=== PATIENT | male | born 1950 | race Caucasian/White ===

== ENCOUNTER 2022-01-25 17:00 | Emergency (ER) | payer MEDICARE, OTHER, SELFPAY ==
--- NOTE | ~2022-01-25 | CT_ITS ---
EXAMINATION: CT HEAD WITHOUT CONTRAST CLINICAL INFORMATION: Arm tingling COMPARISON: 12/21/2019 TECHNIQUE: Contiguous axial imaging was performed from the skull base to vertex without intravenous administration of contrast. This CT examination was performed using dose optimization techniques as appropriate, variously including the following: *Automated exposure control *Adjustment of mA and/or kV according to patient size (this includes techniques or standardized protocols for targeted exams where dose is matched to indication/reason for exam; i.e. extremities or head) *Use of iterative reconstruction technique DLP: 839 mGy-cm FINDINGS: There is no evidence of acute intracranial hemorrhage or territorial infarction. No abnormal mass effect or midline shift is seen. [place] to white matter differentiation is well preserved. No extra-axial fluid collections are identified. The ventricles are normal in size. There is no abnormal attenuation within the brain parenchyma. The osseous structures and soft tissues are normal. The mastoid air cells and visualized portions of the paranasal sinuses are well aerated. CT/CT head/brain wo con IMPRESSION: No acute intracranial pathology.
--- NOTE | 2022-01-25 17:15 | ED.WEAKNESS ---
HPI - Weakness General Chief complaint: Neuro Symptoms/Deficit Stated complaint: LEFT ARM NUMBNESS Time Seen by Provider: 01/25/22 17:55 Source: patient and EMS Mode of arrival: EMS Limitations: no limitations History of Present Illness HPI Narrative: 72-year-old male presents via EMS with left arm numbness and tingling that started approximately 1 hour prior to arrival. States that he has been out in the sun, walking the dog, and did not have much to drink today. He did not report any alcohol or drug use, states that he has a difficult time with prolonged sun exposure and has prior history of heat stroke. Feels this is similar. He does have full range of motion, and did not report any neurological deficits. He denies chest pain or pressure, palpitations, shortness of breath, syncope, fevers, chills, nausea, vomiting, diarrhea, and loss of consciousness MD Complaint: generalized weakness, numbness and tingling Onset (ago): hour(s) (Within 1 hour of arrival) Duration: improved Location: LUE Migration: none Severity: mild Severity scale (1-10): 2 Quality: tingling and numbness Relieving factors: rest Exacerbating factors: other (Heat) Context: other (Heat exposure) Associated symptoms: denies other symptoms Related Data Home Medications Medication Instructions Recorded Confirmed venlafaxine 37.5 mg 3 cap PO DAILY 01/25/22 01/25/22 capsule,extended release 24 hr Previous Rx's Medication Instructions Recorded lisinopril 5 mg tablet 5 mg PO DAILY #30 tabs 09/02/21 Allergies Allergy/AdvReac Type Severity Reaction Status Date / Time No Known Allergies Allergy Unverified 03/10/20 15:10 [No Known Allergies*] Review of Systems Review of Systems: Constitutional: No Fever, No Chills ENT/Mouth: No Ear Pain, No Hoarseness, No sore throat Eyes: No Eye Pain, No Swelling, No Redness, No Foreign Body Cardiovascular: No Chest Pain, No SOB Respiratory: No Cough, No Dyspnea Gastrointestinal: No Nausea, No Vomiting, No Diarrhea, No abdominal Pain Genitourinary: No Dysuria, No Hematuria Musculoskeletal: No joint pain, No Myalgias, No Joint Swelling Skin: No Skin lacerations, No rash Neuro: No Weakness, positive left arm tingling Numbness, No Paresthesias, No Loss of Consciousness, No Dizziness, No Headache Psych: No Anxiety/Panic, No Depression Heme/Lymph: no easy bruising, no Lymphadenopathy Endocrine: No Polyuria, No Polydipsia Yes all other systems are reviewed and are negative [facility] Past Medical History Attestation statement: The following information was validated with the patient. Source: old records reviewed Social History Social History Alcohol intake: never Advance Directives: No Advance Directives Information Provided: No Physical Exam Vital Signs: Vital Signs: Last Vital Signs Pulse 50 01/25/22 19:21 Resp 16 01/25/22 19:21 BP 187/81 H 01/25/22 19:21 Pulse Ox 100 01/25/22 19:21 O2 Del Method 01/25/22 19:21 BMI result Body Mass Index 28.0 Appearance: Alert. Oriented X3. No acute distress. Head: Normal external exam. Normocephalic. Atraumatic. Eyes: PERRLA. EOMI. Conjunctiva and sclera normal. Eyelids normal. ENT: TM's Normal. Pharynx normal. Uvula midline. Moist mucous membranes. No trismus noted. No drooling noted. No muffled voice noted. Neck: Normal inspection. Neck supple. No adenopathy. No meningeal signs. CVS: Normal heart rate and rhythm. Heart sound normal. No murmurs noted. Pulses equal to all extremities. Respiratory: No respiratory distress. Painless inspiration. Breath sounds normal. No wheezes/rales/rhonchi noted. Chest nontender. No accessory muscle usage noted or decreased air movement noted. Abdomen: Soft and nontender. Bowel sounds normal in all 4 quadrants. No distention noted. No organomegaly noted. No visible injury noted. Back: No CVA tenderness. Full range of motion noted. Skin: Skin warm and dry. Normal skin color. Normal skin turgor. No rashes/lesions/lacerations noted. Extremities: No lower extremity edema. Extremities exhibit normal range of motion. Extremities nontender. Neuro: cranial nerves 2-12 intact, no focal neural deficits, strength 5/5 to all extremities, No motor deficit. No sensory deficit. NIH Stroke Scale Internal: Initial- Upon Arrival Time: 17:21 Level of Consciousness: Alert Level of Consciousness Questions: Answers both questions correctly Level of Consciousness Commands: Performs both tasks correctly Best Gaze: Normal Visual: No visual loss Facial Palsy: Normal Motor Arm (Right): No drift Motor Arm (Left): No drift Motor Leg (Right): No drift Motor Leg (Left): No drift Limb Ataxia: Absent Sensory: Normal Best Language: No aphasia Dysarthia: Normal Extinction and Inattention: No abnormality Score: 0 Course Course Course Narrative: 72-year-old male presents via EMS for left arm numbness and tingling and prolonged heat exposure. Patient is neurovascularly intact, NIH stroke scale is [address] upon arrival[address] Will order CT scan of head however is not a stroke alert, I did discuss this case with Dr. Onofre who agrees with this plan, and workup for ACS. 18:20 troponin is 17.0 will repeat at the 3 hour corwin, H&H is unremarkable 13.9/39.3, and chemistries with exception to troponin are unremarkable. Urinalysis is negative. EKG is bradycardia with LVH, no change since July of 2018, no ST elevations or depressions. 20:42 2nd troponin 18. Negative delta. Low likelihood of ACS. CT scan is negative for acute findings. Low likelihood of CVA. Plan care to discharge home and patient to follow-up with primary care physician. Patient's symptoms have completely resolved. Has full range of motion, ambulatory with even steady gait. Plan care to discharge home. Patient verbalized understanding of and agrees to plan of care discharge home. Verbalized understanding of signs and symptoms indicating need for emergent intervention. MDM - Weakness MDM Narrative Medical decision making narrative: ACS, CVA Differential Diagnosis Differential diagnosis: Likely anemia, hypoglycemia and dehydration Medical Records Attestation: I reviewed the patient's medical records. Lab Data Attestation: I reviewed the patient's lab results. Result diagrams: 01/25/22 17:27 01/25/22 17:27 Labs: Lab Results 01/25/22 01/25/22 01/25/22 Range/Units 17:27 17:27 17:27 WBC 6.2 (4.8-10.8) X10*3/uL RBC 4.23 L (4.60-5.80) X10*6/uL Hgb 13.9 L (14.0-18.0) g/dl Hct 39.3 L (42.0-52.0) % MCV 92.9 (80.0-98.0) fL MCH 32.9 (27.0-33.0) pg MCHC 35.4 (31.0-36.0) g/dl RDW 12.6 (11.0-16.0) % Plt Count 193 (160-400) X10*3/uL MPV 9.7 (9.4-12.4) fL Immature Gran % (Auto) 0.3 (0.0-0.4) % Neut % (Auto) 69.9 (45-73) % Lymph % (Auto) 17.2 L (20-40) % [place] % (Auto) 7.3 (2-11) % Eos % (Auto) 4.2 H (0-4) % Baso % (Auto) 1.1 (0-2) % Lymph # (Auto) 1.1 L (1.2-4.9) X10*3/uL [place] # (Auto) 0.5 (0.1-1.2) X10*3/uL Eos # (Auto) 0.3 (0.0-0.4) X10*3/uL Baso # (Auto) 0.1 (0.0-0.2) X10*3/uL Abs Immat Gran (auto) 0.02 (0.00-0.03) X10*3/uL Absolute Neuts (auto) 4.3 (2.0-8.3) x10*3/uL Absolute Nucleated RBC 0.000 (0.0-0.012) X10*3/uL Nucleated RBC % (auto) 0.0 (0.0-0.2) /100WBC Sodium 138 (135-145) mmol/L Potassium 3.9 (3.3-5.1) mmol/L Chloride 107 (96-108) mmol/L Carbon Dioxide 22 (22-29) mmol/L Anion Gap 13 (12-20) BUN 14 (9-16) mg/dL Creatinine 0.74 (0.5-1.4) mg/dL Estim Creat Clear Calc 101.0 Estimated GFR > 60 POC Glucose (60-115) mg/dL Random Glucose 99 (60-115) mg/dL Calcium 8.7 (8.4-10.2) mg/dL Magnesium 1.9 (1.6-2.6) mg/dL Total Bilirubin 0.4 (0.0-1.0) mg/dL Direct Bilirubin < 0.2 (0.0-0.5) mg/dL AST 14 (5-37) U/L ALT 16 (0-40) U/L Alkaline Phosphatase 109 (39-117) U/L Troponin I High Sens 17.0 (<3.5-35.0) ng/L Total Protein 5.6 L (6.5-8.0) g/dL Albumin 3.8 (3.5-5.0) g/dL Lipase 9 (8-78) U/L Urine Color Urine Appearance Urine pH (5.0-8.0) Ur Specific [place] (1.005-1.025) Urine Protein (NEG-TRACE) MG/DL Urine Glucose (UA) (NEG) MG/DL Urine Ketones (NEG) MG/DL Urine Blood (NEG) Urine Nitrite (NEG) Ur Leukocyte Esterase (NEG) 01/25/22 01/25/22 01/25/22 Range/Units 17:30 17:49 19:53 WBC (4.8-10.8) X10*3/uL RBC (4.60-5.80) X10*6/uL Hgb (14.0-18.0) g/dl Hct (42.0-52.0) % MCV (80.0-98.0) fL MCH (27.0-33.0) pg MCHC (31.0-36.0) g/dl RDW (11.0-16.0) % Plt Count (160-400) X10*3/uL MPV (9.4-12.4) fL Immature Gran % (Auto) (0.0-0.4) % Neut % (Auto) (45-73) % Lymph % (Auto) (20-40) % [place] % (Auto) (2-11) % Eos % (Auto) (0-4) % Baso % (Auto) (0-2) % Lymph # (Auto) (1.2-4.9) X10*3/uL [place] # (Auto) (0.1-1.2) X10*3/uL Eos # (Auto) (0.0-0.4) X10*3/uL Baso # (Auto) (0.0-0.2) X10*3/uL Abs Immat Gran (auto) (0.00-0.03) X10*3/uL Absolute Neuts (auto) (2.0-8.3) x10*3/uL Absolute Nucleated RBC (0.0-0.012) X10*3/uL Nucleated RBC % (auto) (0.0-0.2) /100WBC Sodium (135-145) mmol/L Potassium (3.3-5.1) mmol/L Chloride (96-108) mmol/L Carbon Dioxide (22-29) mmol/L Anion Gap (12-20) BUN (9-16) mg/dL Creatinine (0.5-1.4) mg/dL Estim Creat Clear Calc Estimated GFR POC Glucose 101 (60-115) mg/dL Random Glucose (60-115) mg/dL Calcium (8.4-10.2) mg/dL Magnesium (1.6-2.6) mg/dL Total Bilirubin (0.0-1.0) mg/dL Direct Bilirubin (0.0-0.5) mg/dL AST (5-37) U/L ALT (0-40) U/L Alkaline Phosphatase (39-117) U/L Troponin I High Sens 18.4 (<3.5-35.0) ng/L Total Protein (6.5-8.0) g/dL Albumin (3.5-5.0) g/dL Lipase (8-78) U/L Urine Color YELLOW Urine Appearance CLEAR Urine pH 6.0 (5.0-8.0) Ur Specific [place] 1.020 (1.005-1.025) Urine Protein NEG (NEG-TRACE) MG/DL Urine Glucose (UA) NEG (NEG) MG/DL Urine Ketones NEG (NEG) MG/DL Urine Blood NEG (NEG) Urine Nitrite NEG (NEG) Ur Leukocyte Esterase NEG (NEG) Imaging Data CT scan - head: Attestation: I personally reviewed and interpreted this imaging study as follows: Radiologist's impression: EXAMINATION: CT HEAD WITHOUT CONTRAST CLINICAL INFORMATION: Arm tingling? COMPARISON: 12/21/2019 TECHNIQUE: Contiguous axial imaging was performed from the skull base to vertex without intravenous administration of contrast. This CT examination was performed using dose optimization techniques as appropriate, variously including the following: *Automated exposure control *Adjustment of mA and/or kV according to patient size (this includes techniques or standardized protocols for targeted exams where dose is matched to indication/reason for exam; i.e. extremities or head) *Use of iterative reconstruction technique DLP: 839 mGy-cm FINDINGS: There is no evidence of acute intracranial hemorrhage or territorial infarction. No abnormal mass effect or midline shift is seen. [place] to white matter differentiation is well preserved. No extra-axial fluid collections are identified. The ventricles are normal in size. There is no abnormal attenuation within the brain parenchyma. The osseous structures and soft tissues are normal. The mastoid air cells and visualized portions of the paranasal sinuses are well aerated. ? CT/CT head/brain wo con IMPRESSION: No acute intracranial pathology. ECG Data Attestation: I personally reviewed and interpreted this ECG as follows: ECG interpretation date: 01/25/22 ECG interpretation time: 17:46 Prior ECG tracings: available for review Interpretation: Vent. rate 51 BPM LA interval 168 ms QRS duration 102 ms QT/QTc 398/366 ms P-R-T axes 46 -25 17 Sinus bradycardia Minimal voltage criteria for LVH, may be normal variant ( Kristian product ) Inferior infarct (cited on or before 16-AUG-2018) Abnormal ECG When compared with ECG of 16-AUG-2018 13:28, No significant change was found Scores Heart Score History: -0- slightly suspicious ECG: -0- normal Age: -2- > or = 65 Risk factory: -1- 1 or 2 risk factors Troponin: -0- < or = normal limit Score: 3 Risk: 1.7% Discharge Plan Discharge Clinical Impression: Arm numbness left Patient Disposition: Home, Self-Care Instructions: Paresthesia (ED) Additional Instructions: You were evaluated for left arm numbness. CT scan of the head is negative for stroke and bleeding. EKG is normal sinus rhythm. Your 1st troponin was 17, your 2nd troponin 18. These are considered negative troponins. Please follow-up with primary care physician. Return to the emergency department for any new, concerning, or worsening symptoms. Prescriptions: No Action lisinopril 5 mg tablet 5 mg PO DAILY Qty: 30 3RF venlafaxine 37.5 mg capsule,extended release 24hr 3 cap PO DAILY Referrals: Jean Marie Bardales, [facility] [Primary Care Provider] - 1 week (Resolved paresthesia to the left arm) Interventions: ED Discharge Assessment Last Done: 01/25/22 20:55 Discharge Date/Time: 01/25/22 20:56
--- NOTE | 2022-01-25 17:16 | ECG_ITS ---
Test Reason : LEFT ARM TINGLING Blood Pressure : / mmHG Vent. Rate : 051 BPM Atrial Rate : 051 BPM P-R Int : 168 ms QRS Dur : 102 ms QT Int : 398 ms P-R-T Axes : 046 -25 017 degrees QTc Int : 366 ms Sinus bradycardia Minimal voltage criteria for LVH, may be normal variant ( Sproul product ) Inferior infarct (cited on or before 16-AUG-2018) Abnormal ECG When compared with ECG of 16-AUG-2018 13:28, No significant change was found Referred By: Pauline Barrera Electronically Signed By:KAYLIN LONDONO MD
[2022-01-25 17:37] LABS: Basophils Absolute Auto 0.1 X10*3/uL (0.0-0.2); Basophils Percent Auto 1.1 % (0-2); Eosinophils Absolute Auto 0.3 X10*3/uL (0.0-0.4); Eosinophils Percent Auto 4.2 % (0-4); Hematocrit 39.3 % (42.0-52.0); Hemoglobin 13.9 g/dl (14.0-18.0); Imm Gran Abs Auto 0.02 X10*3/uL (0.00-0.03); Imm Gran Pct Auto 0.3 % (0.0-0.4); Lymphocytes Absolute Auto 1.1 X10*3/uL (1.2-4.9); Lymphocytes Percent Auto 17.2 % (20-40); MANUAL DIFF FLAG NO; Mean Corpuscular HGB Conc 35.4 g/dl (31.0-36.0); Mean Corpuscular Hemoglobin 32.9 pg (27.0-33.0); Mean Corpuscular Volume 92.9 fL (80.0-98.0); Mean Platelet Volume 9.7 fL (9.4-12.4); Monocytes Absolute Auto 0.5 X10*3/uL (0.1-1.2); Monocytes Percent Auto 7.3 % (2-11); Neutrophils Absolute Auto 4.3 x10*3/uL (2.0-8.3); Neutrophils Percent Auto 69.9 % (45-73); Platelet Count 193 X10*3/uL (160-400); Red Blood Count 4.23 X10*6/uL (4.60-5.80); Red Cell Distribution Width 12.6 % (11.0-16.0); White Blood Count 6.2 X10*3/uL (4.8-10.8)
[2022-01-25 17:37] LABS: Glucose, Whole Blood 101 mg/dL (60-115)
[2022-01-25 17:53] VITALS: BP 169/80; PULSE 51; RESP 18; O2SAT 96; BMI 28.0
[2022-01-25 18:05] LABS: Appearance Urine CLEAR; Color Urine YELLOW; Glucose Urine UA NEG (NEG); Leukocyte Esterase Urine NEG (NEG); Nitrite Urine NEG (NEG); Urine Blood NEG (NEG); Urine Ketones NEG (NEG); Urine Protein NEG (NEG-TRACE)
[2022-01-25 18:06] LABS: Alanine Aminotransferase 16 U/L (0-40); Albumin Level 3.8 g/dL (3.5-5.0); Alkaline Phosphatase 109 U/L (39-117); Anion Gap 13 (12-20); Aspartate Amino Transferase 14 U/L (5-37); Bilirubin Direct < 0.2 mg/dL (0.0-0.5); Bilirubin Total 0.4 mg/dL (0.0-1.0); Blood Urea Nitrogen 14 mg/dL (9-16); Calcium 8.7 mg/dL (8.4-10.2); Carbon Dioxide 22 mmol/L (22-29); Chloride 107 mmol/L (96-108); Estimated Glomerular Filt Rate > 60; Glucose Random 99 mg/dL (60-115); Lipase 9 U/L (8-78); Magnesium 1.9 mg/dL (1.6-2.6); Potassium 3.9 mmol/L (3.3-5.1); Sodium 138 mmol/L (135-145); Total Protein 5.6 g/dL (6.5-8.0)
[2022-01-25] MEDS: 0.9 % Sodium Chloride 1,000 ML 999 ML IVCONT (18:07)
[2022-01-25 19:21] VITALS: BP 187/81; PULSE 50; RESP 16; O2SAT 100
--- NOTE | 2022-01-25 19:23 | PC.NURSE ---
pt c/o numbness to L arm while shaving in a hot bathroom, reports being in heat and not drinking enough lately. sx resolved at this time. stroke scale - no facial asymmetry, [employer] workers supervisor strength strong and equal. pt ambulated to BR to void with no complaints.
[2022-01-25 20:22] LABS: Troponin-I High Sensitivity 18.4 ng/L (<3.5-35.0)
== END 2022-01-25 20:56 | disposition home or self-care (01) ==
PROVIDERS: Nurse Practitioner Family; Emergency Provider Student in an Organized Health Care Education/Training Program; PCP Nurse Practitioner Family
DX: R20.0 Anesthesia of skin (principal); R53.1 Weakness; I10 Essential (primary) hypertension
CPT/HCPCS: 36415; 70450; 80048; 80076; 81003; 82947; 83690; 83735; 84484; 85025; 93005; 96360; 96361; 99284; 99285

== ENCOUNTER 2022-06-26 06:45 | Outpatient (REF) | payer MEDICARE, OTHER, SELFPAY ==
[2022-06-26 11:19] LABS: MANUAL DIFF FLAG NO
[2022-06-26 11:31] LABS: Appearance Urine Clear; Color Urine Yellow; Glucose Urine UA Negative (Negative); Leukocyte Esterase Urine Negative (Negative); Nitrite Urine Negative (Negative); PH 5.5 (5.0-9.0); Specific Gravity - Urine >= 1.030 (1.005-1.025); Urine Blood Negative (Negative); Urine Ketones Negative (Negative); Urine Protein Trace mg/dL (Neg-Trace)
[2022-06-26 11:38] LABS: Basophils Absolute Auto 0.1 X10*3/uL (0.0-0.2); Basophils Percent Auto 1.4 % (0-2); Eosinophils Absolute Auto 0.2 X10*3/uL (0.0-0.4); Eosinophils Percent Auto 3.7 % (0-4); Hematocrit 43.1 % (42.0-52.0); Hemoglobin 14.6 g/dl (14.0-18.0); Imm Gran Abs Auto 0.01 X10*3/uL (0.00-0.03); Imm Gran Pct Auto 0.2 % (0.0-0.4); Lymphocytes Absolute Auto 0.9 X10*3/uL (1.2-4.9); Lymphocytes Percent Auto 16.1 % (20-40); Mean Corpuscular HGB Conc 33.9 g/dl (31.0-36.0); Mean Corpuscular Hemoglobin 33.9 pg (27.0-33.0); Mean Platelet Volume 9.6 fL (9.4-12.4); Monocytes Absolute Auto 0.3 X10*3/uL (0.1-1.2); Monocytes Percent Auto 5.6 % (2-11); Neutrophils Absolute Auto 4.2 x10*3/uL (2.0-8.3); Platelet Count 283 X10*3/uL (160-400); Red Blood Count 4.31 X10*6/uL (4.60-5.80); Red Cell Distribution Width 12.6 % (11.0-16.0); White Blood Count 5.7 X10*3/uL (4.8-10.8)
[2022-06-26 12:16] LABS: Alanine Aminotransferase 13 U/L (0-40); Albumin Level 4.1 g/dL (3.5-5.0); Alkaline Phosphatase 116 U/L (39-117); Anion Gap 8 (12-20); Aspartate Amino Transferase 15 U/L (5-37); Bilirubin Total 0.6 mg/dL (0.0-1.0); Blood Urea Nitrogen 18 mg/dL (9-16); Calcium 9.6 mg/dL (8.4-10.2); Carbon Dioxide 29 mmol/L (22-29); Chloride 105 mmol/L (96-108); Cholesterol 193 mg/dL; Estimated Glomerular Filt Rate > 60; Glucose Fasting 91 mg/dL (60-99); HDL Cholesterol 44 mg/dL; LDL Cholesterol Calculated 119 mg/dl; Potassium 4.3 mmol/L (3.3-5.1); Sodium 138 mmol/L (135-145); Triglycerides 154 mg/dL
[2022-06-26 12:38] LABS: TSH reflex Free T4 0.81 uIU/mL (0.32-4.0)
== END 2022-06-26 06:46 | disposition home or self-care (01) ==
LOC: HO.HMGCLDS 06:45
PROVIDERS: PCP Nurse Practitioner Family; Visit Provider Nurse Practitioner Family
DX: I10 Essential (primary) hypertension (principal)
CPT/HCPCS: 36415; 80053; 80061; 81003; 84443; 85025

== ENCOUNTER 2023-12-28 11:35 | Emergency (ER) | payer MEDICARE, OTHER, SELFPAY ==
--- NOTE | ~2023-12-28 | XR_ITS ---
EXAMINATION: XR LUMBOSACRAL SPINE CLINICAL INFORMATION: Reason for Exam right lumbar pain COMPARISON: None TECHNIQUE: 3 views of the lumbar spine FINDINGS: 5 nonrib-bearing lumbar-type vertebral bodies. Questionable mild age-indeterminate wedge compression deformity of the L1 vertebral body with minimal height loss. Alignment is maintained. Moderate multilevel degenerative disc disease worse at L5-S1 with loss of disc space height and facet arthropathy. Atherosclerotic calcifications of the abdominal aorta. XR/XR lumbar spine 2-3V IMPRESSION: 1. Questionable mild age-indeterminate wedge compression deformity of the L1 vertebral body with minimal height loss. Alignment is maintained. 2. Moderate multilevel degenerative disc disease worse at L5-S1 with loss of disc space height and facet arthropathy.
[2023-12-28 11:47] VITALS: BP 203/85; PULSE 59; RESP 16; TEMP 36.7; O2SAT 97; BMI 26.6
--- NOTE | 2023-12-28 11:47 | ED_ITS ---
[facility] - General Adult General Chief complaint: Back Pain/Injury Stated complaint: back pain Time Seen by Provider: 12/28/23 11:58 Source: patient and RN notes reviewed Mode of arrival: ambulatory Limitations: no limitations History of Present Illness ED Provider: Erika Boyle PA-C [facility] narrative: This is a 73-year-old male, with a history of chronic back pain, who presents emergency department with complaints of acute on chronic back pain x3 weeks. Patient states that he has had back problems for decades, and is currently followed by [facility]. He states that he had a recent ablation 3 weeks ago and states that his pain has worsened significantly. Patient reports right low back pain, which radiates down into his mid lateral thigh. He followed up with [facility] last week who prescribed him gabapentin and diclofenac which he has been taking however states that this has not been providing him with any relief. He called [facility] and states that he was told he would get a MRI of his back however states that it has been a week and he has not heard back. He has not had any fevers or chills. No abdominal pain. No urinary or bowel incontinence or retention. No saddle anesthesia. No other complaints or concerns at this time. MD complaint: Acute on chronic back pain Onset (ago): week(s) Location: back Radiation: extremity Severity: mild Quality: burning Pain Consistency: constant Relieving factors: none Exacerbating factors: none Associated symptoms: denies other symptoms Treatments prior to arrival: none Related Data Home Medications ?Medication ?Instructions ?Recorded ?Confirmed venlafaxine 37.5 mg 3 cap PO DAILY 01/25/22 07/02/22 capsule,extended release 24 hr Previous Rx's ?Medication ?Instructions ?Recorded lisinopril 5 mg tablet 5 mg PO DAILY #90 tabs 11/12/23 ketorolac 10 mg tablet 10 mg PO Q6H PRN pain 3 days #12 12/28/23 tabs lidocaine 5 % topical patch 1 patch topical DAILY #30 ea 12/28/23 (Lidoderm) Allergies Allergy/AdvReac Type Severity Reaction Status Date / Time No Known Allergies Allergy Verified 12/28/23 11:49 [No Known Allergies*] Review of Systems Review of Systems: Yes all other systems are reviewed and are negative Constitutional: Constitutional: Reports as per [facility] Social History Social History Housing: House Alcohol intake: never Patient Tobacco Use Status: Never used Tobacco e-Cigarette/Vaping Use: Never Used Second Hand Smoke Exposure: No Advance Directives: No Advance Directives Information Provided: No Do you have a plan to hurt others: No Plan service: No Current occupational status: retired Cognitive needs: No Hearing needs: No Vision needs: No Physical Exam ED Vital Signs: Vital Signs - 24 hr 12/28/23 11:47 12/28/23 12:09 12/28/23 14:00 Temperature 98.0 F 97.9 F Pulse Rate 59 55 50 Respiratory Rate 16 12 Blood Pressure 203/85 H 164/74 H 219/91 H Pulse Oximetry 97 96 Oxygen Delivery Method Room Air Room Air 12/28/23 15:39 Temperature 98.0 F Pulse Rate 50 Respiratory Rate 16 Blood Pressure 190/90 H Pulse Oximetry 97 Oxygen Delivery Method Room Air BMI result Body Mass Index 26.6 Const General: cooperative, comfortable and no acute distress Orientation/consciousness: patient oriented x3 Limitations: no limitations HENMT Head: Yes normal to inspection, Yes normocephalic and Yes atraumatic Ears: hearing grossly normal bilaterally General nose exam: Normal external nose present Face and sinus: Yes normal facial exam Mouth: Normal oral and palatal mucosa present, oropharynx normal and moist mucous membranes Throat: Yes posterior oropharynx normal Eyes General: appearance normal, both eyes and all related structures Eyelids: Yes eyelids normal Conjunctivae: conjunctivae normal Sclerae: sclerae normal Pupils: Equal, round and reactive pupils present EOM: EOMs intact bilaterally Neck Neck: Yes normal visual inspection, Yes full ROM and Yes no lymphadenopathy Lymphatic: no lymphadenopathy noted Chest Chest palpation & inspection: normal inspection of the chest Resp Effort & Inspection: normal respiratory effort and able to speak in complete sentences Auscultation: clear to auscultation bilaterally, no crackles, no rales, no rhonchi and no wheezes Cardio Rate: regular rate Rhythm: regular rhythm Heart sounds: S1 normal heart sound present and S2 normal heart sound present GI Inspection: Yes normal to inspection Back/Spine/Pelvis Other: Tenderness palpation along the midline spine and right SI joint. Negative straight leg raise bilaterally. Strength 5/5 in lower extremities. Sensation intact. Skin General skin exam: no rashes or lesions noted Trauma: no lacerations or abrasions Wounds: no wounds Neuro General: patient oriented x3 and moves all extremities Cranial nerves: Yes Equal, round and reactive pupils present Extrem General: Yes normal to inspection Right upper extremity: normal to inspection Left upper extremity: normal to inspection Right lower extremity: normal to inspection Left lower extremity: normal to inspection Course Course Course Narrative: This is a Rapid Medical Examination (RME) performed by Vanessa Kaur PA-C in triage. Full HPI, ROS, assessment and treatment plan per primary provider in the Main ED. 73 yo male hx of etoh abuse, HTN here for eval of acute on chronic central low back pain x3 wks. Hx of cortisone injections at [facility]. recently seen there for RFA 3 wks ago, pain has worsened, now extending down legs. had f/u last week and was told an MRI would be ordered however this has not yet happened. taking motrin, mm relaxer, and gabapentin without relief. last dose 3 days ago. denies saddle anesthesia, bowel/bladder incontinence or retention. ttp of right lumbar paraspinal mm. strength intact. sensation intact. Plan: xrs ordered Reevaluation(s) Reevaluation #1: Patient's blood pressure was elevated, he states that he already took his lisinopril 5 mg however given level 200 over 90s, will administer 2nd dose of lisinopril. He has follow-up with his PCP on Saturday. Advised to follow-up regarding blood pressure. He understands and agrees with plan. He has no dizziness, focal deficits, chest pain or shortness for breath. At this time, patient blood pressure is 190/90, improved from previous. Patient given strict return precautions. Patient stable for discharge. Time: 18:50 Medications Administered Discontinued Medications Generic Name Dose Route Start Last Admin Trade Name Freq PRN Reason Stop Dose Admin Ketorolac Tromethamine 30 mg 12/28/23 12:43 12/28/23 12:56 Ketorolac Tromethamine 30 Mg/Ml Vial IM 12/28/23 12:44 30 mg ONCE ONE Administration Lisinopril 5 mg 12/28/23 14:50 12/28/23 14:55 Lisinopril 5 Mg Tablet PO 12/28/23 14:51 5 mg ONCE ONE Administration Protocol Medical Decision Making Medical Decision Making MDM Narrative: This is a 73-year-old male, with a history of hypertension and chronic back pain, who presents emergency department with complaints of acute on chronic back pain x3 weeks. He reports recent ablation in his back by [facility] 3 weeks ago and has only had worsening pain. He was prescribed gabapentin and diclofenac which he has been taking without any relief. On arrival, blood pressure elevated at 2 0 3/85, repeat during my assessment, 164/74. He does report he took his blood pressure medication. He has no chest pain or shortness for breath. No dizziness. He is tenderness palpation along the right SI joint. He has had no fevers or chills. Differential Diagnosis Differential Diagnoses: The differential diagnosis associated with the presentation includes Admission/Observation Consideration of admission/observation: Escalation of care including admission/ observation considered Lab Data [facility] Lab Attestation statement: I reviewed the patient's lab results. Radiology Impression Discussion of test interpretation with radiology: I have reviewed the radiologist's reading. External Record Review External record reviewed: Inpatient record, Office record, Outpatient record, Prior outpatient labs, Prior outpatient radiology, Primary care record and Outside ED record Discharge Plan Discharge Clinical Impression: Back pain Patient Disposition: Home, Self-Care Instructions: Back Pain (ED) Additional Instructions: You were seen in the emergency department due to worsening back pain. Your x-ray does show a questionable mild age indeterminate wedge compression fracture deformity of L1 vertebral body with minimal height loss. There is also multilevel degenerative disc disease, worse at L5-S1. You were given a medication called Toradol. This provided you with some relief. I am discharging him with a short prescription of this medication. Do not mix with any other NSAID medications, such as ibuprofen or naproxen. You may take Tylenol with this medication. Follow-up with the body painter. I am also giving your referral to the site specialist here. Call on Saturday to make an appointment. Lidocaine patches can also help with your symptoms. If any new or worsening symptoms occur including but not limited to numbness and tingling into your groin, loss of control of your bladder or bowels, difficulty with walking, please return for re-evaluation. Prescriptions: New ketorolac 10 mg tablet 10 mg PO Q6H PRN (Reason: pain) 3 Days Qty: 12 0RF lidocaine [Lidoderm] 5 % adhesive patch,medicated 1 patch topical DAILY Qty: 30 0RF Rx Instructions: leave on most painful area for up to 12 hrs No Action lisinopril 5 mg tablet 5 mg PO DAILY Qty: 90 1RF venlafaxine 37.5 mg capsule,extended release 24hr 3 cap PO DAILY Referrals: [facility] [Provider Group] William Reddy MD [Physician] - Interventions: ED Discharge Assessment Last Done: 12/28/23 15:39 Discharge Date/Time: 12/28/23 15:41 Print Language: Lao
[2023-12-28 12:09] VITALS: BP 164/74; PULSE 55; RESP 12; TEMP 36.6; O2SAT 96
[2023-12-28] MEDS: Ketorolac Tromethamine 30 MG/ML VIAL IM (12:56)
[2023-12-28 14:00] VITALS: BP 219/91; PULSE 50
[2023-12-28] MEDS: lisinopriL 5 MG TABLET PO (14:55)
--- NOTE | 2023-12-28 15:19 | PC.NURSE ---
upon dc vitals, patient's bp noted to be markedly high, provider made aware, additional dose of bp med given.
[2023-12-28 15:39] VITALS: BP 190/90; PULSE 50; RESP 16; TEMP 36.7; O2SAT 97
== END 2023-12-28 15:41 | disposition home or self-care (01) ==
PROVIDERS: Emergency Provider Emergency Medicine; PCP Nurse Practitioner Family
DX: M54.50 Low back pain, unspecified (principal); I10 Essential (primary) hypertension
CPT/HCPCS: 72100; 96372; 99284; J1885

== ENCOUNTER 2023-12-30 08:04 | Outpatient (AMB) | payer MEDICARE, OTHER, SELFPAY ==
[2023-12-30 08:10] VITALS: BP 162/90; PULSE 57; TEMP 36.6; O2SAT 96; BMI 26.9
--- NOTE | 2023-12-30 08:10 | AM.OFFWIN_ITS ---
Intake Vital Signs 12/30/23 08:10 Height 5 ft 9 in Weight 182 lb BMI 26.9 BP 162/90 H Blood Pressure Location Rt brachial Position Sitting Pulse 57 Pulse Source Pulse Oximeter Temp 97.9 F Temp Source Oral Pulse Oximetry (%) 96 Oxygen Delivery Method Room Air Intake Visit Reasons: EP High BP Intake Note: pt is here for high bp Patient Tobacco Use Status: Never used Tobacco Allergies No Known Allergies [No Known Allergies*] Allergy (Verified 12/30/23 08:34) Medication List - Last Reconciled 12/30/23 by Rashaun Burgos MD ketorolac 10 mg PO Q6H PRN 3 days lidocaine 5% (Lidoderm) 1 patch topical DAILY lisinopril 10 mg PO DAILY venlafaxine ER 3 caps PO DAILY Do you need a note to return to daycare/school/sports/work: No HPI EP High BP HPI Details [age] year old no presents to the office for a sick visit. Patient gives history of chronic low back pain. Recently he underwent ablation treatment in the lower back. The pain symptoms worsened and was seen in the emergency room over the weekend. It was noted that his blood pressure was markedly elevated patient was asked to follow-up with his primary care regarding the dosage of the blood pressure medications he is taking. Patient decided to use the walk-in for the same. Also wants a referral to pain management. [facility] Social History Housing: House Alcohol intake: never Patient Tobacco Use Status: Never used Tobacco e-Cigarette/Vaping Use: Never Used Second Hand Smoke Exposure: No service: No Current occupational status: retired Cognitive needs: No Hearing needs: No Vision needs: No Physical Exam Vital Signs: Last Vital Signs Temp 97.9 F 12/30/23 08:10 Pulse 57 12/30/23 08:10 BP 162/90 H 12/30/23 08:10 Pulse Ox 96 12/30/23 08:10 Oxygen Delivery Method Room Air 12/30/23 08:10 BMI result Body Mass Index 26.9 Const General: cooperative and healthy appearing Nutritional Appearance: well nourished Orientation/consciousness: patient oriented x3 Limitations: no limitations HEENT Head: Yes normal to inspection Eyes General: appearance normal, both eyes and all related structures Neck Neck: Yes normal visual inspection Chest Chest palpation & inspection: normal palpation of entire chest wall Resp Effort & Inspection: normal respiratory effort Neuro General: patient oriented x3 Assessment & Plan Assessment & Plan (1) HTN (hypertension): Code(s): I10 - Essential (primary) hypertension Qualifiers: Hypertension type: essential hypertension Qualified Code(s): I10 - Essential (primary) hypertension Plan: Lisinopril dosage has been increased to 10 mg once a day. His elevated blood pressure may also be also due to the pain says he is having. A referral for pain management has been made. A note for his primary care provider will be sent regarding the same. Orders: Referrals Pain Management Referral G89.29 - Other chronic pain, M54.50 - Low back pain, unspecified Medications: New lisinopril 10 mg PO DAILY 90 tabs 1RF Discontinued lisinopril Discontinued Reason: Doctor's Order 5 mg PO DAILY 90 tabs 1RF Coding Level of Care Code Est Pt Level 4 (59564) Diagnoses Essential hypertension I10 Hypertension type: essential hypertension
== END 2023-12-30 08:38 | disposition home or self-care (01) ==
PROVIDERS: PCP Nurse Practitioner Family; Visit Provider Internal Medicine
DX: I10 Essential (primary) hypertension (principal)
CPT/HCPCS: 99214

== ENCOUNTER 2024-01-02 13:29 | Outpatient (AMB) | payer MEDICARE, OTHER, SELFPAY ==
--- NOTE | 2024-01-02 13:30 | MHC.OFFVIS ---
Vital Signs 01/02/24 13:39 Height 5 ft 9 in Weight 181 lb 2 oz BMI 26.7 BP 150/94 H Blood Pressure Location Lt brachial Position Sitting Respiration 14 Pulse 54 Pulse Source Pulse Oximeter Pulse Oximetry (%) 97 Oxygen Delivery Method Room Air Intake Visit Reasons: LOW BACK PAIN Intake Note: Patient comes in for initial visit was referred by primary care. Reports pain 04/02. Allergies No Known Allergies [No Known Allergies*] Allergy (Verified 01/02/24 13:40) HPI Comments Details: Jean Marie is very pleasant 73 years old gentleman who presents in my office with complains on pain in the lower back on the right side with radiation into the right hip. He reports that he suffers from this pain for 20 years. On his [place] [facility] [place] is demonstrable L1 compression fracture. However patient denies recent trauma, fall, bumpy ride. He reports that walking hurts more than sitting staying or laying down. He reports that [facility] injected this pain many years ago and it resulted with 3 years of pain relief. Patient reports that it was steroid injection. Recently [facility] performed radiofrequency ablation of what it looks like lumbar medial branches on the right side. Unfortunately the radiofrequency ablation only aggravated the pain of the patient. He had multiple physical therapies for his pain and none of which were effective. His primary care physician sent him for the MRI of the lumbar spine. He reports that he can not sleep normally can not do activities of daily living can take care of himself can not function normally. Movements aggravate his pain in terms of tissue damage he reports his pain as dull, sore, hurting, aching, heavy sensation. He is taking meloxicam to help his pain 7.5 mg. He received no surgeries in the past he denies any past medical history he denies smoking drinking he denies drugs. [facility] Social History Housing: House Alcohol intake: never Patient Tobacco Use Status: Never used Tobacco e-Cigarette/Vaping Use: Never Used Second Hand Smoke Exposure: No service: No Current occupational status: retired Cognitive needs: No Hearing needs: No Vision needs: No Review of Systems Const Reports no additional complaints ENT Reports no additional complaints and Reports Normal hearing present Card Reports no additional complaints Resp Reports no additional complaints GI Reports no additional complaints Reports no additional complaints Musc Reports as per HPI Neuro Reports no additional complaints, Reports Normal hearing present, Denies Abnormal speech present, Denies confusion and Denies Sensory deficit (Neuro) Psych Reports no additional complaints and Denies confusion Physical Exam Vital Signs: Last Vital Signs Pulse 54 01/02/24 13:39 Resp 14 01/02/24 13:39 BP 150/94 H 01/02/24 13:39 Pulse Ox 97 01/02/24 13:39 Oxygen Delivery Method Room Air 01/02/24 13:39 BMI result Body Mass Index 26.7 Const General: no acute distress; No confusion Orientation/consciousness: patient oriented x3 and No confusion Eyes General: appearance normal, both eyes and all related structures Pupils: Equal, round and reactive pupils present EOM: EOMs intact bilaterally Neck Neck: Yes full ROM Chest Chest palpation & inspection: normal inspection of the chest Resp Effort & Inspection: normal respiratory effort, able to speak in complete sentences, normal respiratory pattern, no audible wheezes and no cough Cardio Jugular venous distension: no JVD GI Inspection: Yes normal to inspection Back/Spine/Pelvis Other: Able to stand on bilateral tiptoes in bilateral heels without difficulty. SLR is negative bilaterally. Lassegue test does not aggravate his pain. Flexing forward and flexing backwards do not aggravate his pain. Flexing sideways than not aggravate his pain. Valsalva maneuver does not aggravate his pain. Lumbar spine Loading test does not aggravate his pain. Raman test is negative bilaterally. Fourteen finger test is positive on the right but this is the only thing which could point out to sacroiliac joint involvement in his pain. Gaenslen test is negative bilaterally. Neuro General: patient oriented x3, gait normal and No confusion Cranial nerves: Yes CN's II-XII intact bilaterally, Yes Equal, round and reactive pupils present, Yes Normal hearing present and Yes Ability to bilaterally elevate shoulders present Speech: No Abnormal speech present Gait exam (Neuro): Normal gait present Motor exam (neuro): 5/5 motor strength present throughout Sensory Exam: No Sensory deficit (Neuro) Extrem General: No pedal edema Psych Speech and movement: Normal speech and movement present Affect: normal affect Attitude: cooperative Thought process: Normal thought process present Thought content: Normal thought content present Insight: Good insight present (Psych) Judgement: Good judgement present (Psych) Results Reviewed Results Reviewed: On the x-ray there is L1 compression fracture Khoi old Assessment & Plan Assessment & Plan (1) Lower back pain: Code(s): M54.50 - Low back pain, unspecified Category: Medical Plan This patient presents as a challenge in terms of diagnosis. All the diagnostic tests are negative. On x-ray there is old compression fracture however it is L1 and unlikely it is involved in the patient's pain syndrome. Fourteen finger test is positive on the right but the rest of the sacroiliac joint tests are negative. He is sent for the MRI of the lumbar spine, he reports pain aggravation with walking, sitting and laying down alleviate his pain. His primary care physician send him for the MRI and I would like to see the MRI of lumbar spine. He received RFA of the lumbar spine medial branches and it appears that RFA aggravated his pain only. Three years ago he received some sort of a steroid injection in the back which alleviated his pain for almost 3 years. I also will request [facility] to send me the injections he received with this organization. I will meet this patient in my office in 2 weeks and I will make my conclusion about this patient's examination and diagnosis. Coding Level of Care Code New Pt Level 3 (81667) Diagnoses Lower back pain M54.50
[2024-01-02 13:39] VITALS: BP 150/94; PULSE 54; RESP 14; O2SAT 97; BMI 26.7
== END 2024-01-02 13:59 | disposition home or self-care (01) ==
PROVIDERS: PCP Nurse Practitioner Family; Referring Provider Nurse Practitioner Family; Visit Provider Anesthesiology
DX: M54.50 Low back pain, unspecified (principal)
CPT/HCPCS: 99203

== ENCOUNTER → 2024-01-02 13:29 | Outpatient (BNVA) | payer MEDICARE, OTHER, SELFPAY | PROVIDERS: PCP Nurse Practitioner Family; Referring Provider Nurse Practitioner Family; Visit Provider Anesthesiology | DX: M54.50 Low back pain, unspecified (principal) | CPT/HCPCS: 99202 ==

== ENCOUNTER 2024-03-16 06:18 | Outpatient (REF) | payer MEDICARE, OTHER, SELFPAY ==
[2024-03-16 10:11] LABS: Appearance Urine Clear; Color Urine Yellow; Glucose Urine UA Negative (Negative); Leukocyte Esterase Urine Negative (Negative); Nitrite Urine Negative (Negative); Urine Blood Negative (Negative); Urine Ketones Negative (Negative); Urine Protein Trace mg/dL (Neg-Trace)
[2024-03-16 10:29] LABS: MANUAL DIFF FLAG NO
[2024-03-16 10:34] LABS: Basophils Absolute Auto 0.1 X10*3/uL (0.0-0.2); Basophils Percent Auto 1.7 % (0-2); Eosinophils Absolute Auto 0.2 X10*3/uL (0.0-0.4); Eosinophils Percent Auto 3.7 % (0-4); Hematocrit 43.8 % (42.0-52.0); Hemoglobin 14.9 g/dl (14.0-18.0); Imm Gran Abs Auto 0.02 X10*3/uL (0.00-0.03); Imm Gran Pct Auto 0.4 % (0.0-0.4); Lymphocytes Absolute Auto 0.9 X10*3/uL (1.2-4.9); Lymphocytes Percent Auto 16.4 % (20-40); Mean Corpuscular Hemoglobin 34.8 pg (27.0-33.0); Mean Corpuscular Volume 102.3 fL (80.0-98.0); Mean Platelet Volume 9.8 fL (9.4-12.4); Monocytes Absolute Auto 0.3 X10*3/uL (0.1-1.2); Monocytes Percent Auto 6.3 % (2-11); Neutrophils Absolute Auto 3.8 x10*3/uL (2.0-8.3); Neutrophils Percent Auto 71.5 % (45-73); Platelet Count 259 X10*3/uL (160-400); Red Blood Count 4.28 X10*6/uL (4.60-5.80); Red Cell Distribution Width 13.1 % (11.0-16.0); White Blood Count 5.4 X10*3/uL (4.8-10.8)
[2024-03-16 11:07] LABS: Alanine Aminotransferase 18 U/L (0-40); Albumin Level 4.3 g/dL (3.5-5.0); Alkaline Phosphatase 134 U/L (39-117); Anion Gap 11 (12-20); Aspartate Amino Transferase 18 U/L (5-37); Bilirubin Total 0.4 mg/dL (0.0-1.0); Blood Urea Nitrogen 13 mg/dL (9-16); Calcium 9.8 mg/dL (8.4-10.2); Carbon Dioxide 28 mmol/L (22-29); Chloride 107 mmol/L (96-108); Cholesterol 166 mg/dL (<200); Estimated Glomerular Filt Rate > 60; Glucose Fasting 98 mg/dL (60-99); HDL Cholesterol 49 mg/dL (>40); LDL Cholesterol Calculated 100 mg/dL (<100); Potassium 4.7 mmol/L (3.3-5.1); Sodium 141 mmol/L (135-145); TSH reflex Free T4 1.17 uIU/mL (0.32-4.0); Total Protein 6.5 g/dL (6.5-8.0); Triglycerides 85 mg/dL (<150)
== END 2024-03-16 06:19 | disposition home or self-care (01) ==
LOC: HO.HMGCLDS 06:18
PROVIDERS: PCP Nurse Practitioner Family; Visit Provider Nurse Practitioner Family
DX: I10 Essential (primary) hypertension (principal)
CPT/HCPCS: 36415; 80053; 80061; 81003; 84443; 85025

== ENCOUNTER 2024-03-24 13:18 | Outpatient (AMB) | payer MEDICARE, OTHER, SELFPAY ==
--- NOTE | 2024-03-24 13:19 | A.OFFVIS_ITS ---
Intake Vital Signs 03/24/24 13:20 Height 5 ft 9 in Weight 182 lb BMI 26.9 BP 170/92 H Blood Pressure Location Lt brachial Position Sitting Pulse 60 Pulse Source Pulse Oximeter Pulse Oximetry (%) 97 Intake Visit Reasons: AWV Intake Note: pt is here for AWV Under Baster Required: No Accompanied by: Self / Same As Patient Allergies No Known Allergies [No Known Allergies*] Allergy (Verified 03/24/24 13:20) Medication List - Last Reconciled 03/24/24 by MELANY Mena-MARIANA lidocaine 5% (Lidoderm) 1 patch topical DAILY lisinopril 40 mg PO DAILY meloxicam 7.5 mg PO DAILY PRN tramadol 50 mg PO DAILY PRN 20 days venlafaxine ER 3 caps PO DAILY Do you need a note to return to daycare/school/sports/work: No HPI AWV HPI Details Pt is here for an AWV. Denies fever, chills, and dizziness. [place] of care in scan pile. PPP will be scanned in chart and copy will be given to pt. Due for colon screen, will order cologuard. Refuses PSA. HPI Comments History of Present Illness Details HTN: Blood pressure is managed with lisinopril 10mg. BP is elevated today. Will increase lisinopril to 40mg. Will have pt monitor his BP at home and send readings via portal. Denies chest pain, shortness of breath, headache, dizziness, and blurred vision. Pt's alk phos was elevated. Will order alk leah isoenzyme. Dyslipidemia: Will start low-dose atorvastatin. [facility], [facility] Social History Housing: House Alcohol intake: never Patient Tobacco Use Status: Never used Tobacco e-Cigarette/Vaping Use: Never Used Second Hand Smoke Exposure: No service: No Current occupational status: retired Cognitive needs: No Hearing needs: No Vision needs: No Questionnaire Medicare Wellness Checkup [age] What gender do you identify with?: male During the past 4 weeks, how much have you been bothered by emotional problems such as feeling anxious, depressed, irritable, sad or downhearted, and blue?: not at all During the past 4 weeks, has your physical & emotional health limited your social activities with family, friends, neighbors, or groups?: not at all During the past 4 weeks, how much bodily pain have you generally had?: no pain During the past 4 weeks, was someone available to help you if you needed & wanted help?: yes, as much as I wanted During the past 4 weeks, what was the hardest physical activity you could do for at least 2 minutes?: moderate Can you get to places out of walking distance without help? (For eg., can you travel alone on buses, taxis or drive your car?): Yes Can you go shopping for groceries or clothes without someone's help?: Yes Can you prepare your own meals?: Yes Can you do your housework without help?: Yes Because of any health problems, do you need the help of another person with your personal care needs such as eating, bathing, dressing or getting around the house?: No Can you handle your own money without help?: Yes During the past 4 weeks, how would you rate your health in general?: excellent During the past 4 weeks how have things been going for you?: very well; could hardly better Are you having difficulties driving your car?: no Do you always fasten your seat belt when you are in a car?: yes, usually During past 4 weeks, have you been bothered by the following: never: Falling or dizzy when standing up, Sexual problems?, Trouble eating well?, Teeth or denture problems?, Problems using the telephone? and Tiredness or fatigue? Have you fallen 2 or more times in the past year?: No Are you afraid of falling?: No Are you a smoker?: no During the past 4 weeks, how many drinks of wine, beer, or other alcoholic beverages did you have?: no alcohol at all Do you exercise for about 20 minutes 3 or more times a week?: yes, all the time Have you been given information to help with the following?: yes: Hazards in your house that might hurt you? and yes: Keeping track of your medications? How often do you have trouble taking medicines the way you have been told to take them?: I always take medicine as prescribed How confident are you that you can control & manage most of your health problems?: very confident What is your race?: White PHQ-9 Over the last 2 weeks, how often have you been bothered by any of the following problems? 1. Little interest or pleasure in doing things: not at all 2. Feeling down, depressed, or hopeless: not at all 3. Trouble falling or staying asleep, or sleeping too much: not at all 4. Feeling tired or having little energy: not at all 5. Poor appetite or overeating: not at all 6. Feeling bad about yourself - or that you are a failure or have let yourself or your family down: not at all 7. Trouble concentrating on things, such as reading the newspaper or watching television: not at all 8. Moving or speaking so slowly that other people could have noticed. Or the opposite - being so fidgety or restless that you have been moving around a lot more than usual: not at all 9. Thoughts that you would be better off or of hurting yourself in some way: not at all Total score: 0 Depression Screening Interpretation: Negative Depression Screening Done: Yes 21832 - PHQ-9 Billing: Yes Source: Developed by Drs. Simone Cheung, Phoenix Barclay and colleagues, with an educational tonya from [employer]. PARRISH-7 AMB Questionnaire PARRISH-7 Date PARRISH - 7 assessed: 03/24/24 Feeling nervous, anxious, or on edge: 0 = Not at all Not being able to stop or control worryin = Not at all Worrying too much about different things: 0 = Not at all Trouble relaxin = Not at all Being so restless that it is hard to sit still: 0 = Not at all Becoming easily annoyed or irritable: 0 = Not at all Feeling afraid as if something awful might happen: 0 = Not at all Total PARRISH-7 score (0-4 normal; 5-9 mild; 10-14 moderate; 15-21 severe): 0 Source: Developed by Drs. Simone Cheung, Phoenix Barclay and colleagues, with an educational tonya from [employer]. PRARISH-7 Assessment Billing PARRISH-7 Assessment Tool: PARRISH-7 Assessment 27619 Review of Systems Const Reports as per HPI Physical Exam Vital Signs: Last Vital Signs Pulse 60 03/24/24 13:20 BP 170/92 H 10/01/24 13:20 Pulse Ox 97 03/24/24 13:20 BMI result Body Mass Index 26.9 Const General: cooperative Orientation/consciousness: patient oriented x3 Resp Effort & Inspection: normal respiratory effort Auscultation: clear to auscultation bilaterally Cardio Rate: regular rate Rhythm: regular rhythm Heart sounds: S1 normal heart sound present, S2 normal heart sound present and Murmur heart sound present systolic Neuro Other: - romberg, can tandem walk, can walk and turn, can rise from sitting to standing, passed whisper test General: patient oriented x3 Psych Appearance: grossly normal Mental Status: mental status grossly normal Speech and movement: Normal speech and movement present Affect: normal affect Attitude: cooperative Thought process: Normal thought process present Thought content: Normal thought content present Insight: Good insight present (Psych) Judgement: Good judgement present (Psych) Office Procedures Cerumen Removal From which ear canal was the cerumen removed: bilateral Removal: irrigation Notes: patient tolerated procedure well, no complications and ear canal clear [id number] Irrigation/Lavage Assessment & Plan Assessment & Plan (1) Cerumen debris on tympanic membrane of both ears: Code(s): H61.23 - Impacted cerumen, bilateral Plan: clean (2) HTN (hypertension): Code(s): I10 - Essential (primary) hypertension Qualifiers: Hypertension type: essential hypertension Qualified Code(s): I10 - Essential (primary) hypertension Plan: increased lisinopril from 10mg to 40mg, will send values via portal (3) Encounter for annual wellness visit (AWV) in Medicare patient: Code(s): Z00.00 - Encounter for general adult medical examination without abnormal findings (4) Elevated alkaline phosphatase level: Code(s): R74.8 - Abnormal levels of other serum enzymes Plan: alk phos break down (5) Systolic murmur: Code(s): R01.1 - Cardiac murmur, unspecified Plan: echo Plan The patient agreed to the use of a biomedical engineering technician for this encounter. Scribed for JAZZ Salazar by Charmaine Dickerson biomedical engineering technician, on 03/24/2024 at 13:45 EST. Orders: Orders Alkaline Phosphatase Isoenzyme Today R74.8 - Abnormal levels of other serum enzymes CA echo transthoracic complete Today R01.1 - Cardiac murmur, unspecified Medications: New atorvastatin 10 mg PO BEDTIME 90 days 90 tabs 0RF Changed From lisinopril 10 mg PO DAILY 90 tabs 1RF To lisinopril 40 mg PO DAILY 90 tabs 1RF Refilled lisinopril 40 mg PO DAILY 90 tabs 1RF Quality Reporting (2019) Depression/Bipolar (159/160/161/177) PHQ-9: Total score: 0 Coding Level of Care Code Medicare First (G0438) Est Pt Level 3 (45580) Diagnoses Cerumen debris on tympanic membrane of both ears H61.23 Essential hypertension I10 Hypertension type: essential hypertension Encounter for annual wellness visit (AWV) in Medicare patient Z00.00 Elevated alkaline phosphatase level R74.8 Systolic murmur R01.1 CPT Codes Advance Care Planning - Time spent: 1-15 minutes, on File ([id number]) Office Procedure - CPT: 46197-Eur Irrigation/Lavage ([id number]) Additional Codes PARRISH-7 Assessment Billing - PARRISH-7 Assessment Tool: PARRISH-7 Assessment 54456 ([id number]) Advance Care Planning Forms completed: Health Care Proxy (form completed), MOLST (form filled out) and Living will (done, according to pt) Time spent: 1-15 minutes, on File Actual minutes spent: 15
[2024-03-24 13:20] VITALS: BP 170/92; PULSE 60; O2SAT 97; BMI 26.9
== END 2024-03-24 17:28 | disposition home or self-care (01) ==
PROVIDERS: PCP Nurse Practitioner Family; Visit Provider Nurse Practitioner Family
DX: Z00.00 Encounter for general adult medical examination without abnormal findings (principal); H61.23 Impacted cerumen, bilateral; I10 Essential (primary) hypertension; R74.8 Abnormal levels of other serum enzymes; R01.1 Cardiac murmur, unspecified

== ENCOUNTER → 2024-03-24 13:18 | Outpatient (BNVA) | payer MEDICARE, OTHER, SELFPAY | PROVIDERS: PCP Nurse Practitioner Family; Visit Provider Nurse Practitioner Family | DX: Z00.01 Encounter for general adult medical examination with abnormal findings (principal); H61.23 Impacted cerumen, bilateral; I10 Essential (primary) hypertension; R74.8 Abnormal levels of other serum enzymes; R00.1 Bradycardia, unspecified | CPT/HCPCS: 69209; 96127; 99212 ==

== ENCOUNTER 2024-04-30 08:01 | Outpatient (AMB) | payer MEDICARE, OTHER, SELFPAY ==
[2024-04-30 08:09] VITALS: BP 130/90; PULSE 47; TEMP 36.6; O2SAT 98; BMI 25.4
--- NOTE | 2024-04-30 08:09 | MHC.OFFWIV ---
Intake Vital Signs 04/30/24 08:09 Height 5 ft 9 in Weight 172 lb BMI 25.4 BP 130/90 H Blood Pressure Location Lt brachial Position Sitting Pulse 47 L Pulse Source Pulse Oximeter Temp 98 F Temp Source Oral Pulse Oximetry (%) 98 Oxygen Delivery Method Room Air Intake Visit Reasons: EP ? sinus infection Intake Note: Patient here for sinus congestion which has been present for about 4-5 days. Patient Tobacco Use Status: Never used Tobacco Allergies No Known Allergies [No Known Allergies*] Allergy (Verified 04/30/24 08:14) Do you need a note to return to daycare/school/sports/work: No HPI HPI Comments History of Present Illness Details Patient is a 74-year-old male complaining of 5 days of a dry cough, head congestion, sinus pain and pressure and teeth pain the last 5 days. He denies any ear pain, fevers, shortness of breath or wheezing. Tells me he is eating and drinking normally. He tells me he has not tried anything to make himself feel better. He did not test for COVID at home and he denies any sick contacts. [facility] Social History Housing: House Alcohol intake: never Patient Tobacco Use Status: Never used Tobacco e-Cigarette/Vaping Use: Never Used Second Hand Smoke Exposure: No service: No Current occupational status: retired Cognitive needs: No Hearing needs: No Vision needs: No Review of Systems Const All systems reviewed & are unremarkable except as noted in HPI and below Physical Exam Vital Signs: Last Vital Signs Temp 98 F 04/30/24 08:09 Pulse 47 L 04/30/24 08:09 BP 130/90 H 04/30/24 08:09 Pulse Ox 98 04/30/24 08:09 Oxygen Delivery Method Room Air 04/30/24 08:09 BMI result Body Mass Index 25.4 Const General: cooperative, healthy appearing, comfortable and no acute distress Orientation/consciousness: patient oriented x3 Limitations: no limitations HEENT Head: Yes normal to inspection Ears: hearing grossly normal bilaterally, external ears normal and TM's normal bilaterally General nose exam: Normal external nose present, Normal nares present and No nasal discharge present Face and sinus: Yes normal facial exam and Yes sinus tenderness (maxillary bilateral) Mouth: Normal oral and palatal mucosa present and moist mucous membranes Throat: Yes tonsils normal, Yes uvula midline and Yes posterior oropharynx abnormal (Erythema) Eyes General: appearance normal, both eyes and all related structures Neck Neck: Yes normal visual inspection Resp Effort & Inspection: normal respiratory effort, able to speak in complete sentences, Actively coughing, no respiratory distress, not tachypneic, no tripod positioning and no use of accessory muscles Auscultation: clear to auscultation bilaterally Cardio Rate: regular rate Rhythm: regular rhythm Heart sounds: normal S1 and S2 Skin General skin exam: no rashes or lesions noted Neuro General: patient oriented x3 Extrem General: Yes normal to inspection and Yes no clubbing, cyanosis or edema Assessment & Plan Assessment & Plan (1) URI (upper respiratory infection): Code(s): J06.9 - Acute upper respiratory infection, unspecified Qualifiers: URI type: unspecified URI Qualified Code(s): J06.9 - Acute upper respiratory infection, unspecified Plan: VSS, pt well appearing, physical exam relatively unremarkable. Explained that sinusitis is almost always viral, we will do a prednisone taper for the pain/pressure. Recommended he use a Neti pot and Flonase as well. Plan see above Orders: Orders SARS-CoV2/FLU/RSV Today J06.9 - Acute upper respiratory infection, unspecified Medications: New prednisone See taper instructions 10 mg PO DIRECTED 21 ea 0RF Coding Level of Care Code Est Pt Level 3 (85708) Diagnoses Upper respiratory tract infection, unspecified type J06.9 URI type: unspecified URI
== END 2024-04-30 08:49 | disposition home or self-care (01) ==
PROVIDERS: PCP Nurse Practitioner Family; Visit Provider Physician Assistant
DX: J06.9 Acute upper respiratory infection, unspecified (principal)

== ENCOUNTER 2024-04-30 08:01 | Outpatient (REF) | payer MEDICARE, OTHER, SELFPAY ==
[2024-04-30 11:28] LABS: Influenza A PCR NEGATIVE (Negative); Influenza B PCR NEGATIVE (Negative); Resp Syncy Virus RNA Qual PCR NEGATIVE (Negative); SARS COV2 PCR INHOUSE NEGATIVE (Negative)
== END 2024-04-30 08:02 | disposition home or self-care (01) ==
LOC: HO.LAB 08:01
PROVIDERS: PCP Nurse Practitioner Family; Visit Provider Physician Assistant
DX: J06.9 Acute upper respiratory infection, unspecified (principal)
CPT/HCPCS: 0241U; 99212

== ENCOUNTER 2024-10-20 07:59 | Outpatient (REF) | payer MEDICARE, OTHER, SELFPAY ==
[2024-10-24 20:03] LABS: PSA, Ultra Sensitive 6.71 ng/mL
== END 2024-10-20 08:00 | disposition home or self-care (01) ==
LOC: HO.HMGCLDS 07:59
PROVIDERS: PCP Nurse Practitioner Family; Visit Provider Nurse Practitioner Family
DX: Z12.5 Encounter for screening for malignant neoplasm of prostate (principal); R97.20 Elevated prostate specific antigen [PSA]
CPT/HCPCS: 36415; 81003; 84153; 99212

== ENCOUNTER 2024-10-20 07:59 | Outpatient (AMB) | payer MEDICARE, OTHER, SELFPAY ==
--- NOTE | 2024-10-20 08:03 | AM.OFFWIN_ITS ---
Intake Vital Signs 10/20/24 08:10 Weight 185 lb BP 122/80 Blood Pressure Location Rt brachial Position Sitting Pulse 49 L Pulse Source Pulse Oximeter Pulse Oximetry (%) 97 Oxygen Delivery Method Room Air Intake Visit Reasons: EP Urinary problems Intake Note: Patient here for frequent urination, urinating small amounts which has been present for a while now. Patient Tobacco Use Status: Never used Tobacco Allergies No Known Allergies [No Known Allergies*] Allergy (Verified 10/20/24 08:17) Medication List - Last Reconciled 10/20/24 by MELANY Stauffer-MARIANA atorvastatin 10 mg PO BEDTIME lidocaine 5% (Lidoderm) 1 patch topical DAILY lisinopril 40 mg PO DAILY meloxicam 7.5 mg PO DAILY PRN tramadol 50 mg PO DAILY PRN 20 days venlafaxine ER 3 caps PO DAILY Do you need a note to return to daycare/school/sports/work: No HPI HPI Comments History of Present Illness Details History - The patient is a 74-year-old male pres enting with urinary complaints related to Benign Prostatic Hyperplasia (BPH). - Symptoms began roughly 40 years prior and initially correlated with heavy alcohol use, resolved with patient achieving sobriety over 32 years ago. - Past medical evaluations have shown an enlarged prostate but no indication of prostate cancer. - High prostate hormone levels were note d in prior assessments, but PSA levels have not been checked since 2019, although there were previous elevations. - The patient maintains a physically act tiana lifestyle and continues to work part-time, contributing to his overall well-being. - The patient is hesitant about further invasive prostate investigations like biopsies but has consented to a PSA blood test to check hormone levels. - There are no signs or symptoms of infe ction or systemic illness at this time. Physical Exam General: Awake, alert. No apparent distress MMM Abd soft nontender No CVAT Results - Labs: Urinalysis benign, Prostate-Spec ific Antigen (PSA) test ordered. Discussion Notes In today's visit, we discussed the patient's urinary complaints linked to Benign Prostatic Hyperplasia (BPH) and the importance of monitoring prostate health through regular testing like PSA levels. The patient expressed reluctance towards more invasive procedures such as a prostate biopsy, and I acknowledged this concern. Instead, we reached a consensus to proceed with ordering a PSA test, which will provide insights into the patient's current prostate health. We discussed reviewing the urinalysis results to rule out infection as a contributing factor to symptoms. The patient appreciated the proactive but minimally invasive approach. Follow-up appointments and the possibility of interventions will depend on future PSA results and any other emergent symptoms. Assessment and Plan 1. Benign Prostatic Hyperplasia (BPH) The patient's urinary symptoms align with established BPH, confirmed by prior exams. PSA monitoring is planned with an agreed blood test to determine present status and guide management. Start flomax.PCP heads up given. 2. History of Alcoholism Continued sobriety, actively working to maintain health and lifestyle benefits. 3. Reluctance for Prostate-Specific Anti gen (PSA) Testing Agreed PSA testing as a non-invasive measure to assist in ongoing evaluation and monitoring. Patient Instructions - Follow through with the PSA blood test as agreed upon to check your hormone levels. - Continue to maintain an active lifesty le and monitor for any new or worsening symptoms, such as fever, chills, or blood in urine. - Report any significant changes in heal th or symptoms to the medical office promptly. Consent Patient was informed and verbally consented to the use of an ambient scribe for clinic note documentation during this visit. Total time spent caring for the patient today was 30 minutes. This includes time spent before the visit reviewing the chart, time spent during the visit, and time spent after the visit on documentation, reviewing laboratory results, diagnostic imaging, medications, performing a medically necessary evaluation, counseling on diagnoses, care coordination, ordering appropriate tests, ordering appropriate medications, review of tests performed by other providers, reporting test results with the patient, communication with other healthcare providers. [facility] Social History Housing: House Alcohol intake: never Patient Tobacco Use Status: Never used Tobacco e-Cigarette/Vaping Use: Never Used Second Hand Smoke Exposure: No service: No Current occupational status: retired Cognitive needs: No Hearing needs: No Vision needs: No Physical Exam Vital Signs: Last Vital Signs Pulse 49 L 10/20/24 08:10 BP 122/80 10/20/24 08:10 Pulse Ox 97 10/20/24 08:10 Oxygen Delivery Method Room Air 10/20/24 08:10 Assessment & Plan Assessment & Plan (1) Elevated PSA measurement: Code(s): R97.20 - Elevated prostate specific antigen [PSA] Plan . Orders: Orders PSA, Ultra Sensitive Today R97.20 - Elevated prostate specific antigen [PSA] Medications: New tamsulosin (Flomax) 0.4 mg PO BEDTIME 90 caps 0RF Coding Level of Care Code Est Pt Level 4 (58183) Diagnoses Elevated PSA measurement R97.20
[2024-10-20 08:10] VITALS: BP 122/80; PULSE 49; O2SAT 97
== END 2024-10-20 08:33 | disposition home or self-care (01) ==
PROVIDERS: PCP Nurse Practitioner Family; Visit Provider Nurse Practitioner Family
DX: R97.20 Elevated prostate specific antigen [PSA] (principal); Z13.9 Encounter for screening, unspecified

== ENCOUNTER 2025-03-02 07:48 | Outpatient (AMB) | payer MEDICARE, OTHER, SELFPAY ==
--- NOTE | 2025-03-02 07:48 | A.OFFVIS_ITS ---
Intake Visit Reasons: elevated PSA Intake Note: New Patient is present for elevated psa Urology Rx:Tamsulosin Blood Thinners: none Imaging completed: none today's pvr:0ml's Lodge Sales Associate Required: No Accompanied by: Self / Same As Patient Allergies No Known Allergies (No Known Allergies*) Allergy (Verified 03/02/25 08:40) Medication List - Last Reconciled 03/02/25 by MELANY Lundberg- atorvastatin 10 mg PO BEDTIME lidocaine 5% (Lidoderm) 1 patch topical DAILY lisinopril 40 mg PO DAILY tamsulosin (Flomax) 0.4 mg PO BEDTIME venlafaxine ER 3 caps PO DAILY HPI Comments Details: Jean Marie is a 75-year-old male patient of Dr. Magana. He has a past medical history of alcohol abuse however has been sober for over 32 years, hypertension, and hyperlipidemia. He presents to the office today as a new patient for an elevated PSA. In discussion with the patient today he reports having followed up with PCP as he had been having lower urinary tract symptoms and was started on Flomax that he feels has been significantly helpful at which time his PSA was drawn and noted to be elevated and recommendations were made for urology referral. When asked he denies any known family history of prostate cancer. AMARIS was performed smooth and no suspicious nodules palpated. PSA: 08/12 4.8, 08/12 5.8 % free PSA 18%, 10/16 6.7 In review of patient's chart it appears patient with past medical evaluations have shown an enlarged prostate but no indication of prostate cancer. We did discussed at length potential causes of elevated PSA. We discussed further interventions and risks and benefits of these interventions. He reports prior to Flomax he had been experiencing episodes of urinary urgency, urinary frequency, and weak urinary stream. However he stresses how helpful this has be en any denies any bothersome urinary issues or concerns at this time. In office urinalysis results reviewed with the patient today. All questions were answered. He otherwise offers no other issues or concerns at this time. The patient is a 75-year-old male presenting with elevated prostate-specific antigen (PSA) levels. He reports a history of urinary frequency and urgency, which improved si gnificantly after discontinuing caffeine and starting tamsulosin (Flomax). He describes feeling significantly better, likening his current state to feeling 17 again. The elevated PSA was identified during routine blood work, prompting a referral to the urology clinic. The patient denies any family history of prostate cancer and has not previously undergone a digital rectal exam until this visit. The patient has been advised to undergo further diagnostic workup, including additional blood tests and an ultrasound to assess prostate size. Physical Exam - Genitourinary: Digital Rectal Exam revealed a normal prostate with no tenderness or masses detected. Plan Patient was informed and verbally consented to the use of an ambient scribe for clinic note documentation during this visit. [facility] Social History Housing: House Alcohol intake: never Patient Tobacco Use Status: Never used Tobacco e-Cigarette/Vaping Use: Never Used Second Hand Smoke Exposure: No service: No Current occupational status: retired Cognitive needs: No Hearing needs: No Vision needs: No Review of Systems Const All systems reviewed & are unremarkable except as noted in HPI and below Physical Exam Const General: cooperative, healthy appearing, comfortable, no acute distress, well developed, alert and awake Orientation/consciousness: patient oriented x3 HEENT Head: Yes normal to inspection, Yes normocephalic and Yes atraumatic Ears: hearing grossly normal bilaterally Eyes General: appearance normal, both eyes and all related structures Neck Neck: Yes normal visual inspection and Yes trachea midline Chest Chest palpation & inspection: normal inspection of the chest Resp Effort & Inspection: normal respiratory effort and able to speak in complete sentences Cardio Rate: regular rate GI Inspection: Yes normal to inspection General: Yes no CVA tenderness Back/Spine/Pelvis Back: no CVA tenderness Skin General skin exam: no rashes or lesions noted Neuro General: patient oriented x3 Extrem General: Yes normal to inspection Psych Appearance: grossly normal and well kempt Mental Status: mental status grossly normal Speech and movement: Normal speech and movement present and Clear speech present Affect: normal affect Attitude: cooperative Thought process: Normal thought process present Thought content: Normal thought content present Insight: Fair insight present (Psych) Judgement: Fair judgement present (Psych) Office Procedures Post Void Residual Post Residual Void Post Void Residual (PVR): 0 [id number] Void Residual by ultrasound Results AMB Urinalysis, Automated UA Leukoctes 0 Placido/uL Last Edit by DARCI Reyes on 03/02/25 08:02 UA Nitrite Negative Last Edit by DARCI Reyes on 03/02/25 08:02 UA Urobilinogen 0.2 mg/dL Last Edit [facility] on 03/02/25 08:0 2 UA Protein 0 mg/dL Last Edit by DARCI Reyes on 03/02/25 08:02 UA pH 6.0 Last Edit by Fidelia Gerardo [facility] on 03/02/25 08:02 UA Blood 10 Dwayne/uL Last Edit by Fidelia Gerardo [facility] on 03/02/25 08:02 UA Specific [place] 1.015 Last Edit by Fidelia Gerardo [facility] on 03/02/25 08: 02 UA Ketone Negative Last Edit by Fidelia Gerardo [facility] on 03/02/25 08:02 UA Bilirubin 0 mg/dL Last Edit by Fidelia Gerardo [facility] on 03/02/25 08:02 UA Glucose 0 mg/dL Last Edit by Fidelia Gerardo [facility] on 03/02/25 08:02 Results Reviewed Results Reviewed: Laboratory Last Values Urine pH (Auto) 6.0 03/02/25 08:02 Specific [place] (Auto) 1.015 03/02/25 08:02 Urine Protein (Auto) 0 mg/dL 03/02/25 08:02 Glucose (UA)(Auto) 0 mg/dL 03/02/25 08:02 Urine Ketones (Auto) Negative 03/02/25 08:02 Urine Blood (Auto) 10 Dwayne/uL 03/02/25 08:02 Urine Nitrite (Auto) Negative 03/02/25 08:02 Urine Bilirubin (Auto) 0 mg/dL 03/02/25 08:02 Urine Urobilinogen (Auto) 0.2 mg/dL 03/02/25 08:02 Leukocyte Esterase (Auto) 0 Placido/uL 03/02/25 08:02 Assessment & Plan Assessment & Plan (1) Elevated PSA measurement: Code(s): R97.20 - Elevated prostate specific antigen [PSA] Category: Medical (2) Lower urinary tract symptoms: Code(s): R39.9 - Unspecified symptoms and signs involving the genitourinary system Category: Medical (3) Urinary frequency: Code(s): R35.0 - Frequency of micturition Category: Medical (4) Weak urinary stream: Code(s): R39.12 - Poor urinary stream Category: Medical Plan In office urinalysis results with the patient today; as noted above. PVR 0 mL AMARIS performed as noted above. Recent PSA results with the patient today; as noted above. We did discussed benefits of these treatment options. He currently denies any bothersome urinary issues or concerns. He reports be happy with current voiding parameters on Flomax; will continue. Will obtain retroperitoneal ultrasound for further assessment evaluation. Will obtain redraw of PSA with no sex the night before, no caffeine morning of, and no heavy lifting 1-2 days prior. All questions were answered. Follow-up in 1-3 months with imaging and labs; or sooner with any issues, concerns, and or questions. Orders: Orders AMB Urinalysis Automated Today Z13.9 - Encounter for screening, unspecified PSA,Total (Free>4and<10) Today R97.20 - Elevated prostate specific antigen [PSA] US retroperitoneal comp Today R35.0 - Frequency of micturition, R39.12 - Poor urinary stream, R39.9 - Unspecified symptoms and signs involving the genitourinary system, R97.20 - Elevated prostate specific antigen [PSA] Patient Instructions: The patient had an opportunity to ask questions regarding the treatment plan. All questions were answered. Physical exam, labs, and imaging were discussed and reviewed in detail. As well as risks, benefits, and discussion of treatment choices. No major barriers to understanding were identified. The patient expressed understanding and agreement with the above treatment plan. The patient was made aware they should contact our office by phone for worsening of their current condition, the appearance of new symptoms, or with any questions or concerns. Compliance is encouraged with any medications and follow up testing that is ordered. It is a privilege to be allowed the opportunity to participate in? your urological care.? Again, if you have any questions or concerns If you have any questions or concerns please do not hesitate to contact me. The office is [phone]. This note is constructed using voice recognition software. While every effort has been made to ensure accuracy corporate receptionist errors may have been included. Yours sincerely, JAZZ Lundberg Coding Level of Care Code New Pt Level 3 (91616) Diagnoses Elevated PSA measurement R97.20 Lower urinary tract symptoms R39.9 Urinary frequency R35.0 Weak urinary stream R39.12 CPT Codes Post Residual Void - PVR CPT Code: 84995-Sjcw Void Residual by ultrasound ([id number])
--- OUTSIDE RECORDS SUMMARY | 2025-03-02 07:52 | XMS_ITS | Clinical Summary ---
Author Organization [facility] Address [address] [facility] [address] [place] [phone] Phone Care Team Providers Care Equipment Sterilizer Name Role Phone System, Provider Not In PhD Primary Care Provide r Unavailable Allergies No known active allergies Medications lisinopril (PRINIVIL,ZESTRI L) 10 MG tablet Take 10 mg by mouth daily. Active venlafaxine (EFFEXOR) 75 MG tablet Take 75 mg by mouth 2 (two) times a day. Active Active Problems No known active problems Social History Tobacco Use Types Packs/Day Years Used Date Smoking Tobacco: Never Smokeless Tobacco: Never Alcohol Use Standard Drinks/Week Comments Not Currently 0 (1 standard drink = 0.6 oz pur e alcohol) 27.5 sober Education Answer Date Recorded Are you interested in more education? Not on dennis e 10/19/2022 Are you concerned about learning? Not on file 10/19/2022 No 10/19/2022 No 10/19/2022 Digital Access Answer Date Recorded No 11/17/2022 No 11/17/2022 No 11/17/2022 Reliable internet access at home? Not on file 11/17/2022 Device with a working camera? Not on file Sex and Gender Information Value Date Recorded Sex Assigned at Not on file Legal Sex Male 8:45 AM EDT Gender Identity Not on file Sexual Orientation Not on file Last Filed Vital Signs Vital Sign Reading Time Taken Comments Blood Pressure 152/88 05/14/2020 5:30 PM EST Pulse 60 05/14/2020 5:30 PM EST Temperature 36.7 C (98 F) 05/14/2020 5:30 PM EST Respiratory Rate - - Oxygen Saturation 98% 05/14/2020 5:30 PM EST Inhaled Oxygen Concentration - - Weight 86.2 kg (190 lb) 05/14/2020 5:30 PM EST Height 172.7 cm (5' 8 ) 05/14/2020 5:30 PM EST Body Mass Index 28.89 05/14/2020 5:30 PM EST Plan of Treatment Health Maintenance Due Date Last Done Comments CREATININE LEVEL 1952 LIPID PANEL 1952 POTASSIUM LEVEL 1952 DEPRESSION SCREENING 1964 HEPATITIS C SCREENING 01/19/1970 COLOGUARD 01/19/1997 COLONOSCOPY 01/19/1997 COLORECTAL CANCER SCREENING 01/19/1997 FIT TEST 01/19/1997 FOBT 01/19/1997 SIGMOIDOSCOPY 01/19/1997 VIRTUAL COLONOSCOPY 01/19/1997 ZOSTER VACCINES (1 of 2) 01/19/2002 PNEUMOCOCCAL VACCINES (50+ years) (3 of 3 - PCV20 or PCV21) 06/24/2021 06/24/2016, 02/09/2016 INFLUENZA VACCINE (#1) 2025 0, 03/13/2019, 04/19/2018 COVID-19 VACCINE (3 - 2024-2 6 season) 2025 09/27/2020, 08/29/2020 RSV VACCINE (1 - 1-dose 75+ series) 01/19/2027 Adult Td,Tdap Booster 12/20/2029 12/21/2019 , 02/09/2016, 06/24/2015 SMOKING STATUS SCREENING (On ce After 26 Yrs) Completed 05/14/2020 HEPATITIS A VACCINES Aged Out No long er eligible based on patient's age to complete this topic HIB VACCINES Aged Out No longer eligi ble based on patient's age to complete this topic MENINGOCOCCAL VACCINES (ACWY) Aged Out No longer eligible based on patient's age to complete this topic MENINGOCOCCAL VACCINES (B) Aged Out N o longer eligible based on patient's age to complete this topic Medical Devices Not on file Insurance MEDICARE PART A & B [employer] EXTENSION MEDICARE SUPPLEMENT MEDICARE PART A & B [employer] MEDICARE SUPPLEMENT MEDICARE PART A & B [employer] MEDICARE SUPPLEMENT MEDICARE PART A & B [employer] MEDICARE SUPPLEMENT MEDICARE PART A & B [employer] MEDICARE SUPPLEMENT MEDICARE PART A & B Member Subscriber Plan / Payer (Ef fective 2018-Present) Name:Jean Marie Simeon Member ID:[id number] Relation to Subscriber:Self Name:Jean Marie Simeon Subscriber ID:[id number] Payer ID:[id number] Group ID:Not on file Type:Medicare Address: [employer] [address] [place] [phone] [employer] EXTENSION MEDICARE SUPPLEMENT MEDICARE PART A & B [facility] EXTENSION MEDICARE SUPPLEMENT MEDICARE PART A & B [facility] EX[employer]ION MEDICARE SUPPLEMENT MEDICARE PART A & B [facility] [employer] MEDICARE SUPPLEMENT Care Teams Equipment Sterilizer Relationship Specialty Start Date End Date System, Provider [place] In, [place] [address] PCP - General 03/01/20 Additional Source Comments The information contained in this document represents components of the legal health record. It is not the complete legal health record.[facility]
--- OUTSIDE RECORDS SUMMARY | 2025-03-02 07:52 | XMS_ITS | Encounter Summary ---
Author Organization [facility] Address [address] [facility] [address] [place] [address] Phone Care Team Providers Care Hand Printed Circuit Board Assembler Name Role Phone Unknown, Unknown MD Primary Care Provider Pastora Costa, Provider Not In PhD Primary Care Provide r Unavailable Encounter Details Date Type Department Care Team (Late st Contact Info) Description 02/26/2020 Ancillary Orders Virtual Department [address] [place] [address] Patt Medina, CASTING MACHINE OPERATOR AUTOMATIC [address] [place] [phone] . Ante Up Lumbar spondylosis Social History Tobacco Use Types Packs/Day Years Used Date Smoking Tobacco: Never Assessed Sex and Gender Information Value Date Recorded Sex Assigned at Not on file Legal Sex Male 8:45 AM EDT Gender Identity Not on file Sexual Orientation Not on file documented as of this encounter Plan of Treatment Not on file documented as of this encounter Results * XR LUMBOSACRAL SPINE 4 OR MORE VIEWS (03/01/2020 11:44 AM EDT) Anatomical Region Laterality Modality L-spine Computed Radiogr aphy 03/01/2020 11:5 2 AM EDT Impressions 03/01/2020 11:59 AM EDT Degenerative disc and endplate changes, moderate to severe at L5-S1. POS - [id number] Narrative 03/01/2020 11:59 AM EDT HISTORY: Lower back pain. COMPARISON: None VIEWS: AP, lateral and bilateral oblique views. FINDINGS: Mild concavity of the endplates of L1 and, to a lesser extent T12 are likely degenerative. No definite compression fractures. No subluxations. Moderate-severe disc space narrowing and sclerotic degenerative endplate changes at L5-S1. Less prominent disc space narrowing and degenerative endplate changes in the lower thoracic spine, thoracolumbar junction and L1-L2. Evidence of moderate facet arthropathy at L4-L5 and, to a lesser extent L5-S1. Mild calcification of the abdominal aorta. Procedure Note Jackson Serna MD - 03/01/2020 HISTORY: Lower back pain. COMPARISON: None VIEWS: AP, lateral and bilateral oblique views. FINDINGS: Mild concavity of the endplates of L1 and, to a lesser extent T12 arelikely degenerative. No definite compression fractures. No subluxations. Moderate-severe disc space narrowing and sclerotic degenerative endplatechanges at L5-S1. Less prominent disc space narrowing and degenerativeendplate changes in the lower thoracic spine, thoracolumbar junction andL1-L2. Evidence of moderate facet arthropathy at L4-L5 and, to a lesser extentL5-S1. Mild calcification of the abdominal aorta. IMPRESSION: Degenerative disc and endplate changes, moderate to severe at L5-S1. POS - [id number] Patt Medina NP IMG XR SPINE Final Result documented in this encounter Visit Diagnoses Diagnosis Lumbar spondylosis Lumbosacral spondylosis without myelopathy Lumbar spondylosis Lumbosacral spondylosis without myelopathy documented in this encounter Care Teams Hand Printed Circuit Board Assembler Relationship Specialty Start Date End Date Unknown, Ismael, MD PCP - General 02/26/20 02/29/20 System, Provider [place] In, [place] [address] PCP - General 03/01/20 documented as of this encounter Additional Source Comments The information contained in this document represents components of the legal health record. It is not the complete legal health record.[facility]
== END 2025-03-02 08:30 | disposition home or self-care (01) ==
LOC: HO.HUSH 07:48
PROVIDERS: PCP Nurse Practitioner Family; Visit Provider Nurse Practitioner Family
DX: R97.20 Elevated prostate specific antigen [PSA] (principal); R39.9 Unspecified symptoms and signs involving the genitourinary system; R35.0 Frequency of micturition; R39.12 Poor urinary stream; Z13.9 Encounter for screening, unspecified
CPT/HCPCS: 99203

== ENCOUNTER → 2025-03-02 07:48 | Outpatient (BNVA) | payer MEDICARE, OTHER, SELFPAY | PROVIDERS: PCP Nurse Practitioner Family; Visit Provider Nurse Practitioner Family | DX: R39.12 Poor urinary stream (principal); R35.0 Frequency of micturition; R39.9 Unspecified symptoms and signs involving the genitourinary system; R97.20 Elevated prostate specific antigen [PSA]; Z13.9 Encounter for screening, unspecified | CPT/HCPCS: 51798; 81003; 99202 ==

== ENCOUNTER 2025-03-09 06:40 | Outpatient (REF) | payer MEDICARE, OTHER, SELFPAY ==
--- OUTSIDE RECORDS SUMMARY | 2025-03-09 06:43 | XMS_ITS | Encounter Summary ---
Author Organization [facility] Address [address] [facility] [address] [place] [phone] Phone Care Team Providers Care Caser Name Role Phone Unknown, Unknown MD Primary Care Provider Pastora Costa, Provider Not In PhD Primary Care Provide r Unavailable Encounter Details Date Type Department Care Team (Late st Contact Info) Description 02/26/2020 Ancillary Orders Virtual Department [address] [place] [address] Patt Medina, HEAT TRANSFER TECHNICIAN [address] [place] [phone] [email or web address] Lumbar spondylosis Social History Tobacco Use Types [...] moderate to severe at L5-S1. POS - [id number] Narrative 03/01/2020 11:59 AM EDT HISTORY: Lower [...] moderate to severe at L5-S1. POS - [id number] Patt Medina NP IMG XR SPINE Final Result documented in this encounter Visit Diagnoses Diagnosis Lumbar spondylosis Lumbosacral spondylosis without myelopathy Lumbar spondylosis Lumbosacral spondylosis without myelopathy documented in this encounter Care Teams Caser Relationship Specialty Start Date End Date Unknown, Ismael, MD PCP - General 02/26/20 02/29/20 System, Provider Not In, [place] [address] PCP - General 03/01/20 documented as of this encounter Additional Source Comments The information contained in this document represents components of the legal health record. It is not the complete legal health record.[facility]
--- OUTSIDE RECORDS SUMMARY | 2025-03-09 06:43 | XMS_ITS | Clinical Summary ---
Author Organization [facility] Address [address] [facility] [address] [place] [phone] Phone Care Team Providers Care Assurance Senior Manager Insurance Name Role Phone System, Provider Not In [...] file Insurance MEDICARE PART A & B [employer] EXTENSION MEDICARE SUPPLEMENT MEDICARE PART A & B [employer] MEDICARE SUPPLEMENT MEDICARE PART A & B [employer] MEDICARE SUPPLEMENT MEDICARE PART A & B [employer] MEDICARE SUPPLEMENT MEDICARE PART A & B [employer] MEDICARE SUPPLEMENT MEDICARE PART A & B Member Subscriber Plan / Payer (Ef fective 2018-Present) Name:Jean Marie Simeon Member ID:[id number] Relation to Subscriber:Self Name:Jean Marie Simeon Subscriber ID:[id number] Payer ID:[id number] Group ID:Not on file Type:Medicare Address: [employer] [address] [place] [phone] [employer] MEDICARE SUPPLEMENT MEDICARE PART A & B [facility] EXTENSION MEDICARE SUPPLEMENT MEDICARE PART A & B [facility] EXTENSION MEDICARE SUPPLEMENT MEDICARE PART A & B [facility] EXTENSION MEDICARE SUPPLEMENT Care Teams Assurance Senior Manager Insurance Relationship Specialty Start Date End Date System, Provider Not In, [place] [address] PCP - General 03/01/20 Additional Source Comments The information contained in this document represents components of the legal health record. It is not the complete legal health record.[facility]
[2025-03-09 12:01] LABS: PSA,Total (Free>4and<10) 6.79 ng/mL (0.00-4.00)
[2025-03-10 12:03] LABS: Free Prostate Spec Ag 1.5 ng/mL; Percent Free Prostate Spec Ag 25 % (calc) (>25)
== END 2025-03-09 06:41 | disposition home or self-care (01) ==
LOC: HO.HMGCLDS 06:40
PROVIDERS: PCP Nurse Practitioner Family; Visit Provider Nurse Practitioner Family
DX: Z12.5 Encounter for screening for malignant neoplasm of prostate (principal); R97.20 Elevated prostate specific antigen [PSA]
CPT/HCPCS: 36415; 84153; 84154

== ENCOUNTER 2025-03-25 13:49 | Outpatient (REF) | payer MEDICARE, OTHER, SELFPAY ==
--- NOTE | ~2025-03-25 | US_ITS ---
EXAMINATION: US RETROPERITONEAL COMPLETE (RENAL) CLINICAL INFORMATION: Increased frequency Peak flow. COMPARISON: Weak flow. TECHNIQUE: Real-time imaging of the kidneys and bladder. FINDINGS: RIGHT KIDNEY: 11.6 x 6.6 x 7.4 cm (SAG x AP x TRV). The kidney is normal in size, contour, and echogenicity. Renal cortical thickness is normal. There is no echogenic calculi. There are anechoic cyst mid pole measuring 3.9 x 2.7 x 3.3 cm and 0.70 x 0.154820 cm.. No hydronephrosis. LEFT KIDNEY: 12.0 x 5.8 x 5.9 cm (SAG x AP x TRV). The kidney is normal in size, contour, and echogenicity. Renal cortical thickness is normal. No calculi or focal parenchymal lesions. No hydronephrosis. BLADDER: Well distended and normal. Bilateral ureteral jets are not demonstrated. Prevoid bladder volume is 45.1 mL. Postvoid bladder volume is 7.9 mL. Prostate is enlarged with volume measuring 60.3 mL. US/US retroperitoneal comp IMPRESSION: 2 anechoic cyst mid pole right kidney. No echogenic calculi or hydronephrosis. Moderately enlarged prostate gland measuring 60 mL. Bilateral ureteral jets are not visualized. Electronically signed by: Seferino Angelo MD 03/25/2025 02:46 PM EDT RP
--- OUTSIDE RECORDS SUMMARY | 2025-03-25 15:28 | XMS_ITS | Encounter Summary ---
Author Organization [facility] Address [address] [facility] [address] [place] [phone] Phone Care Team Providers Care Radial Router Operator Name Role Phone Unknown, Unknown MD Primary Care Provider Pastora Costa, Provider Not In PhD Primary Care Provide r Unavailable Encounter Details Date Type Department Care Team (Late st Contact Info) Description 02/26/2020 Ancillary Orders Virtual Department [address] [place] [address] Patt Medina, TEMPERATURE CONTROL INSPECTOR [address] [place] [phone] [email or web address] Lumbar spondylosis Social History Tobacco Use Types [...] moderate to severe at L5-S1. POS - [id number] Narrative 03/01/2020 11:59 AM EDT HISTORY: Lower [...] moderate to severe at L5-S1. POS - [id number] Patt Medina NP IMG XR SPINE Final Result documented in this encounter Visit Diagnoses Diagnosis Lumbar spondylosis Lumbosacral spondylosis without myelopathy Lumbar spondylosis Lumbosacral spondylosis without myelopathy documented in this encounter Care Teams Radial Router Operator Relationship Specialty Start Date End Date Unknown, Ismael, MD PCP - General 02/26/20 02/29/20 System, Provider Not In, [place] [address] PCP - General 03/01/20 documented as of this encounter Additional Source Comments The information contained in this document represents components of the legal health record. It is not the complete legal health record.[facility]
--- OUTSIDE RECORDS SUMMARY | 2025-03-25 15:28 | XMS_ITS | Clinical Summary ---
Author Organization [facility] Address [address] [facility] [address] [place] [address] Phone Care Team Providers Care Banquet Waiter/Waitress Name Role Phone System, Provider Not In [...] file Insurance MEDICARE PART A & B [employer] EXTENSION MEDICARE SUPPLEMENT MEDICARE PART A & B [employer] EXTENSION MEDICARE SUPPLEMENT MEDICARE PART A & B [employer] MEDICARE SUPPLEMENT MEDICARE PART A & B [employer] MEDICARE SUPPLEMENT MEDICARE PART A & B [employer] MEDICARE SUPPLEMENT MEDICARE PART A & B Member Subscriber Plan / Payer (Ef fective 2018-Present) Name:Jean Marie Simeon Member ID:[id number] Relation to Subscriber:Self Name:Jean Marie Simeon Subscriber ID:[id number] Payer ID:[id number] Group ID:Not on file Type:Medicare Address: [employer] [address] [place] [phone] [employer] MEDICARE SUPPLEMENT MEDICARE PART A & B [facility] EXTENSION MEDICARE SUPPLEMENT MEDICARE PART A & B [facility] EXTENSION MEDICARE SUPPLEMENT MEDICARE PART A & B [facility] EXTENSION MEDICARE SUPPLEMENT Care Teams Banquet Waiter/Waitress Relationship Specialty Start Date End Date System, Provider [place] In, [place] [address] PCP - General 03/01/20 Additional Source Comments The information contained in this document represents components of the legal health record. It is not the complete legal health record.[facility]
== END 2025-03-25 13:50 | disposition home or self-care (01) ==
LOC: HO.HMGCX 13:49
PROVIDERS: PCP Nurse Practitioner Family; Visit Provider Nurse Practitioner Family
DX: R39.9 Unspecified symptoms and signs involving the genitourinary system (principal); R35.0 Frequency of micturition; R39.12 Poor urinary stream; R97.20 Elevated prostate specific antigen [PSA]
CPT/HCPCS: 76770

== ENCOUNTER → 2025-03-25 13:58 | Outpatient (BNV) | payer MEDICARE, OTHER, SELFPAY | PROVIDERS: PCP Nurse Practitioner Family; Visit Provider Radiology Diagnostic Radiology | DX: N28.1 Cyst of kidney, acquired (principal); N40.0 Benign prostatic hyperplasia without lower urinary tract symptoms | CPT/HCPCS: 76770 ==

== ENCOUNTER 2025-03-29 13:49 | Outpatient (AMB) | payer MEDICARE, OTHER, SELFPAY ==
[2025-03-29 13:53] VITALS: BP 144/88; PULSE 80; TEMP 37.1; BMI 27.5
--- NOTE | 2025-03-29 13:53 | AM.OFFVISMDC ---
Intake Vital Signs 03/29/25 13:53 Height 5 ft 9 in Weight 186 lb BMI 27.5 BP 144/88 H Pulse 80 Pulse Source Pulse Oximeter Temp 98.7 F Temp Source Oral Intake Visit Reasons: SWV G0439 *Forms mailed Roller Turner Required: No Accompanied by: Self / Same As Patient Allergies No Known Allergies (No Known Allergies*) Allergy (Verified 03/29/25 13:58) HPI SWV G0439 *Forms mailed HPI Details AWV: CCC in scan pile, PPP in scan pile. HTN: denies any cp, sob, dizziness, blurred vision. Will have him take his BP at home, and drop off values in the near future. NOTE: faint systolic murmur, declined echo [facility] Social History Housing: House Alcohol intake: never Patient Tobacco Use Status: Never used Tobacco e-Cigarette/Vaping Use: Never Used Second Hand Smoke Exposure: No service: No Current occupational status: retired Cognitive needs: No Hearing needs: No Vision needs: No Questionnaire Medicare Wellness Checkup [age] What gender do you identify with?: male During the past 4 weeks, how much have you been bothered by emotional problems such as feeling anxious, depressed, irritable, sad or downhearted, and blue?: not at all During the past 4 weeks, has your physical & emotional health limited your social activities with family, friends, neighbors, or groups?: not at all During the past 4 weeks, how much bodily pain have you generally had?: no pain During the past 4 weeks, was someone available to help you if you needed & wanted help?: no, not at all During the past 4 weeks, what was the hardest physical activity you could do for at least 2 minutes?: very heavy Can you get to places out of walking distance without help? (For eg., can you travel alone on buses, taxis or drive your car?): Yes Can you go shopping for groceries or clothes without someone's help?: Yes Can you prepare your own meals?: Yes Can you do your housework without help?: Yes Because of any health problems, do you need the help of another person with your personal care needs such as eating, bathing, dressing or getting around the house?: No Can you handle your own money without help?: Yes During the past 4 weeks, how would you rate your health in general?: excellent During the past 4 weeks how have things been going for you?: very well; could hardly better Are you having difficulties driving your car?: no Do you always fasten your seat belt when you are in a car?: yes, usually During past 4 weeks, have you been bothered by the following: never: Falling or dizzy when standing up, Sexual problems?, Trouble eating well?, Teeth or denture problems?, Problems using the telephone? and Tiredness or fatigue? Have you fallen 2 or more times in the past year?: No Are you afraid of falling?: No Are you a smoker?: no During the past 4 weeks, how many drinks of wine, beer, or other alcoholic beverages did you have?: no alcohol at all Do you exercise for about 20 minutes 3 or more times a week?: yes, all the time Have you been given information to help with the following?: no: Hazards in your house that might hurt you? and no: Keeping track of your medications? How often do you have trouble taking medicines the way you have been told to take them?: I always take medicine as prescribed What is your race?: White Mini Mental State Exam (MMSE) Orientation What is the (year) (season) (date) (day) (month)?: year, season, date, day and month Where are we (state) (county) (town or city) (hospital) (floor)?: state, county, town or city, hospital/clinic and floor Registration Name of 3 unrelated objects clearly and slowly, then ask patient to repeat all 3 of them. (1st repeat determines score. Make sure they can repeat all three): object 1, object 2 and object 3 Attention & Calculation (CHOOSE ONE) Spell WORLD backwards (DLROW): 5 letters Recall Ask patient to repeat the 3 items from question #3.: object 1, object 2 and object 3 Language Show patient a wristwatch & ask what it is. Repeat for pencil.: watch and pencil Ask the patient to repeat the phrase 'No ifs, ands, or buts' after you.: correct Ask the patient to 'take a piece of paper with their right hand' 'fold paper in half' 'place paper on floor': take paper in right hand, fold paper in half and place paper on floor Print the sentence 'CLOSE YOUR EYES' on a piece. If patient actually closes eyes then score.: followed written direction Give patient a blank piece of paper & ask to write a sentence. Score if it contains a noun & verb.: sentence contains subject and verb Ask patient to copy figure of intersecting pentagons exactly. Score if all 10 angles & 2 intersects are included.: all 10 angles present & 2 are intersected Score Score: 30 Activity of Daily Living Bathing - sponge bath, tub bath or shower: receives no assistance (gets in/out by self, if usual bathing means Dressing - getting clothes from closets & drawers, including inner/outer garments & fasteners.: gets clothes & gets completely dressed without help Toileting - going to the 'toilet room' for urine/bowel elimination & cleaning self/arranging clothes: goes to toilet room, cleans self, arranges clothes without help Transfer: moves in & out of bed and chair without help (may use support object) Continence: controls urination/bowel movements completely by self Feeding: feeds self without help Total Score: 0 Information obtained from: patient Using telephone: independent Traveling: independent Shopping: independent Preparing meals: independent Housework: independent Taking medicine: independent Managing money: independent PHQ-9 Over the last 2 weeks, how often have you been bothered by any of the following problems? 1. Little interest or pleasure in doing things: not at all 2. Feeling down, depressed, or hopeless: not at all 3. Trouble falling or staying asleep, or sleeping too much: not at all 4. Feeling tired or having little energy: not at all 5. Poor appetite or overeating: not at all 6. Feeling bad about yourself - or that you are a failure or have let yourself or your family down: not at all 7. Trouble concentrating on things, such as reading the newspaper or watching television: not at all 8. Moving or speaking so slowly that other people could have noticed. Or the opposite - being so fidgety or restless that you have been moving around a lot more than usual: not at all 9. Thoughts that you would be better off or of hurting yourself in some way: not at all Total score: 0 Depression Screening Interpretation: Negative Depression Screening Done: Yes 74919 - PHQ-9 Billing: Yes Source: Developed by Drs. Simone Cheung, Camille Frances, Phoenix Arreguin and colleagues, with an educational tonya from [employer]. Physical Exam Vital Signs: Last Vital Signs Temp 98.7 F 03/29/25 13:53 Pulse 80 03/29/25 13:53 BP 144/88 H 03/29/25 13:53 BMI result Body Mass Index 27.5 Cardio Rate: regular rate Rhythm: regular rhythm Heart sounds: S1 normal heart sound present, S2 normal heart sound present and Murmur heart sound present (faint systolic) systolic Neuro Other: neg rhomberg, can stand from sitting position, can tandem walk, passed whisper test Assessment & Plan Assessment & Plan (1) HTN (hypertension): Code(s): I10 - Essential (primary) hypertension Qualifiers: Hypertension type: essential hypertension Qualified Code(s): I10 - Essential (primary) hypertension (2) Need for hepatitis B screening test: Code(s): Z11.59 - Encounter for screening for other viral diseases (3) Encounter for annual wellness visit (AWV) in Medicare patient: Code(s): Z00.00 - Encounter for general adult medical examination without abnormal findings Plan . Orders: Orders Complete Blood Count Auto Diff Today I10 - Essential (primary) hypertension TSH reflex Free T4 Today I10 - Essential (primary) hypertension Lipid Panel Today I10 - Essential (primary) hypertension Hepatitis A,B,C Profile Today Z11.59 - Encounter for screening for other viral diseases Comprehensive [place]. Panel Fast Today I10 - Essential (primary) hypertension UA CC w/rflx Micro + Cult Today I10 - Essential (primary) hypertension Quality Reporting (2019) Depression/Bipolar (159/160/161/177) PHQ-9: Total score: 0 Coding Level of Care Code Medicare First (G0438) Est Pt Level 3 (82205) Diagnoses Essential hypertension I10 Hypertension type: essential hypertension Need for hepatitis B screening test Z11.59 Encounter for annual wellness visit (AWV) in Medicare patient Z00.00 CPT Codes Advance Care Planning - Time spent: 1-15 minutes, on File ([id number]) Additional Codes PHQ-9 - 74670 - PHQ-9 Billing: Yes ([id number]) Advance Care Planning Forms completed: Health Care Proxy (done), MOLST (done) and Living will (done) Time spent: 1-15 minutes, on File Actual minutes spent: 5
--- OUTSIDE RECORDS SUMMARY | 2025-03-29 16:15 | XMS_ITS | Encounter Summary ---
Author Organization [facility] Address [address] [place] [address] Phone Care Team Providers Care Cattle Knocker Name Role Phone Unknown, Unknown MD Primary Care Provider Pastora Costa, Provider Not In PhD Primary Care Provide r Unavailable Encounter Details Date Type Department Care Team (Late st Contact Info) Description 02/26/2020 Ancillary Orders Virtual Department [address] [place] [address] Patt Medina, DEMONSTRATOR SALES [address] [place] [phone] [email or web address] Lumbar spondylosis Social History Tobacco Use Types [...] moderate to severe at L5-S1. POS - [id number] Narrative 03/01/2020 11:59 AM EDT HISTORY: Lower [...] moderate to severe at L5-S1. POS - [id number] Patt Medina NP IMG XR SPINE Final Result documented in this encounter Visit Diagnoses Diagnosis Lumbar spondylosis Lumbosacral spondylosis without myelopathy Lumbar spondylosis Lumbosacral spondylosis without myelopathy documented in this encounter Care Teams Cattle Knocker Relationship Specialty Start Date End Date Unknown, Ismael, MD PCP - General 02/26/20 02/29/20 System, Provider [place] In, [place] [address] PCP - General 03/01/20 documented as of this encounter Additional Source Comments The information contained in this document represents components of the legal health record. It is not the complete legal health record.[facility]
--- OUTSIDE RECORDS SUMMARY | 2025-03-29 16:15 | XMS_ITS | Clinical Summary ---
Author Organization [facility] Address [address] [place] [address] Phone Care Team Providers Care Poultry Grader Name Role Phone System, Provider Not In [...] you interested in more education? Not on denins e 10/19/2022 Are you concerned about learning? [...] file Insurance MEDICARE PART A & B [employer] MEDICARE SUPPLEMENT MEDICARE PART A & B [employer] MEDICARE SUPPLEMENT MEDICARE PART A & B [employer] MEDICARE SUPPLEMENT MEDICARE PART A & B [employer] MEDICARE SUPPLEMENT MEDICARE PART A & B [employer] MEDICARE SUPPLEMENT MEDICARE PART A & B Member Subscriber Plan / Payer (Ef fective 2018-Present) Name:Jean Marie Simeon Member ID:[id number] Relation to Subscriber:Self Name:Jean Marie Simeon Subscriber ID:[id number] Payer ID:[id number] Group ID:Not on file Type:Medicare Address: [employer] [address] [place] [phone] [employer] MEDICARE SUPPLEMENT MEDICARE PART A & B [facility] EXTENSION MEDICARE SUPPLEMENT MEDICARE PART A & B [facility] EXTENSION MEDICARE SUPPLEMENT MEDICARE PART A & B [facility] EXTENSION MEDICARE SUPPLEMENT Care Teams Poultry Grader Relationship Specialty Start Date End Date System, Provider [place] In, [place] [address] PCP - General 03/01/20 Additional Source Comments The information contained in this document represents components of the legal health record. It is not the complete legal health record.[facility]
== END 2025-03-29 14:47 | disposition home or self-care (01) ==
LOC: HO.HMCC 13:49
PROVIDERS: PCP Nurse Practitioner Family; Visit Provider Nurse Practitioner Family
DX: Z00.00 Encounter for general adult medical examination without abnormal findings (principal); I10 Essential (primary) hypertension; Z11.59 Encounter for screening for other viral diseases

== ENCOUNTER → 2025-03-29 13:49 | Outpatient (BNVA) | payer MEDICARE, OTHER, SELFPAY | PROVIDERS: PCP Nurse Practitioner Family; Visit Provider Nurse Practitioner Family | DX: Z00.00 Encounter for general adult medical examination without abnormal findings (principal); I10 Essential (primary) hypertension | CPT/HCPCS: 96127; 99212 ==

== ENCOUNTER 2025-05-05 14:40 | Outpatient (AMB) | payer MEDICARE, OTHER, SELFPAY ==
--- NOTE | 2025-05-05 14:43 | A.OFFVIS_ITS ---
Intake Visit Reasons: 2m/PSA/US Intake Note: Patient is present for 2M/PSA/US Urology Medication:TAMSULSOIN Antibiotic Allergy:NONE Blood Thinner:NONE Engineering Tech Required: No Allergies No Known Allergies (No Known Allergies*) Allergy (Verified 05/05/25 16:04) Medication List - Last Reconciled 05/05/25 by MELANY Lundberg-MARIANA atorvastatin 10 mg PO BEDTIME finasteride 5 mg PO DAILY 90 days lisinopril 40 mg PO DAILY tamsulosin (Flomax) 0.4 mg PO BEDTIME venlafaxine ER 3 caps PO DAILY HPI Comments Details: Jean Marie is a 75-year-old male patient of Dr. Magana. He has a past medical history of alcohol abuse however has been sober for over 32 years, hypertension, and hyperlipidemia. He presents to the office today for follow-up of his elevated PSA. Of note, patient was seen approximately 2 months ago as a new patient for an elevated PSA at which time a retroperitoneal ultrasound and redraw of PSA were ordered for further assessment evaluation. These results were reviewed and communicated with the patient today. 04/17 bilateral kidneys are normal in size, contour, and echogenicity. No hydronephrosis or renal calculi noted. There is an anechoic cyst in the mid pole of the right kidney measuring 3.9 cm. The bladder is well distended and normal. Prostate is enlarged measuring 60 mL. PSAs are as follows: PSA: 08/12 4.8, 08/12 5.8 % free PSA 18%, 10/16 6.7, 03/18 6.8 % free PSA 25% During last office visit AMARIS was performed: Smooth and no suspicious nodules were palpated. We did discussed at length potential causes of elevated PSA. We discussed further treatment options and risks and benefits of these treatment options. PCPT risk calculator results were reviewed with the patient today. 80% chance prostate biopsy is negative for prostate cancer, 13% chance of low-grade prostate cancer, and 7% chance of high-grade prostate cancer. He discusses how helpful Flomax has been in treatment of his lower urinary tract symptoms he had been experiencing (urinary urgency, urinary frequency, and weak urinary stream). In office urinalysis results reviewed with the patient today. All questions were answered. He otherwise offers no other issues or concerns at this time. [facility] Social History Housing: House Alcohol intake: never Patient Tobacco Use Status: Never used Tobacco e-Cigarette/Vaping Use: Never Used Second Hand Smoke Exposure: No service: No Current occupational status: retired Cognitive needs: No Hearing needs: No Vision needs: No Review of Systems Const All systems reviewed & are unremarkable except as noted in HPI and below Physical Exam Const General: cooperative, healthy appearing, comfortable, no acute distress, well developed, alert and awake Orientation/consciousness: patient oriented x3 HEENT Head: Yes normal to inspection, Yes normocephalic and Yes atraumatic Ears: hearing grossly normal bilaterally Eyes General: appearance normal, both eyes and all related structures Neck Neck: Yes normal visual inspection and Yes trachea midline Chest Chest palpation & inspection: normal inspection of the chest Resp Effort & Inspection: normal respiratory effort and able to speak in complete sentences Cardio Rate: regular rate GI Inspection: Yes normal to inspection General: Yes no CVA tenderness Back/Spine/Pelvis Back: no CVA tenderness Skin General skin exam: no rashes or lesions noted Neuro General: patient oriented x3 Extrem General: Yes normal to inspection Psych Appearance: grossly normal and well kempt Mental Status: mental status grossly normal Speech and movement: Normal speech and movement present and Clear speech present Affect: normal affect Attitude: cooperative Thought process: Normal thought process present Thought content: Normal thought content present Insight: Fair insight present (Psych) Judgement: Fair judgement present (Psych) Results AMB Urinalysis, Automated UA Leukoctes 0 Placido/uL Last Edit by DARCI Reyes on 05/05/25 15:42 UA Nitrite Negative Last Edit by DARCI Reyes on 05/05/25 15:42 UA Urobilinogen 0.2 mg/dL Last Edit by DARCI Reyes on 05/05/25 15:4 2 UA Protein 15 mg/dL Last Edit by DARCI Reyes on 05/05/25 15:42 UA pH 6.0 Last Edit by DARCI Reyes on 05/05/25 15:42 UA Blood 10 Dwayne/uL Last Edit by DARCI Reyes on 05/05/25 15:42 UA Specific [place] 1.015 Last Edit by DARCI Reyes on 05/05/25 15: 42 UA Ketone Negative Last Edit by DARCI Reyes on 05/05/25 15:42 UA Bilirubin 0 mg/dL Last Edit by DARCI Reyes on 05/05/25 15:42 UA Glucose 0 mg/dL Last Edit by DARCI Reyes on 05/05/25 15:42 Results Reviewed Results Reviewed: Laboratory Last Values Urine pH (Auto) 6.0 05/05/25 15:42 Specific [place] (Auto) 1.015 05/05/25 15:42 Urine Protein (Auto) 15 mg/dL 05/05/25 15:42 Glucose (UA)(Auto) 0 mg/dL 05/05/25 15:42 Urine Ketones (Auto) Negative 05/05/25 15:42 Urine Blood (Auto) 10 Dwayne/uL 05/05/25 15:42 Urine Nitrite (Auto) Negative 05/05/25 15:42 Urine Bilirubin (Auto) 0 mg/dL 05/05/25 15:42 Urine Urobilinogen (Auto) 0.2 mg/dL 05/05/25 15:42 Leukocyte Esterase (Auto) 0 Placido/uL 05/05/25 15:42 Date of Service: 03/25/25 Procedure(s): US retroperitoneal comp FINDINGS: RIGHT KIDNEY: 11.6 x 6.6 x 7.4 cm (SAG x AP x TRV). The kidney is normal in size, contour, and echogenicity. Renal cortical thickness is normal. There is no echogenic calculi. There are anechoic cyst mid pole measuring 3.9 x 2.7 x 3.3 cm and 0.70 x 0.287550 cm.. No hydronephrosis. LEFT KIDNEY: 12.0 x 5.8 x 5.9 cm (SAG x AP x TRV). The kidney is normal in size, contour, and echogenicity. Renal cortical thickness is normal. No calculi or focal parenchymal lesions. No hydronephrosis. BLADDER: Well distended and normal. Bilateral ureteral jets are not demonstrated. Prevoid bladder volume is 45.1 mL. Postvoid bladder volume is 7.9 mL. Prostate is enlarged with volume measuring 60.3 mL. IMPRESSION: 2 anechoic cyst mid pole right kidney. No echogenic calculi or hydronephrosis. Moderately enlarged prostate gland measuring 60 mL. Bilateral ureteral jets are not visualized. Assessment & Plan Assessment & Plan (1) Elevated PSA measurement: Code(s): R97.20 - Elevated prostate specific antigen [PSA] Category: Medical (2) Renal cyst: Code(s): N28.1 - Cyst of kidney, acquired Category: Medical (3) Enlarged prostate: Code(s): N40.0 - Benign prostatic hyperplasia without lower urinary tract symptoms Category: Medical Plan In office urinalysis results reviewed with the patient today; as noted above. Continue Flomax as discussed and prescribed. We reviewed recent retroperitoneal ultrasound results; as noted above. Most recent PSA results reviewed with the patient today; as noted above. We did discussed potential causes of elevated PSA as well as further treatment options and risks and benefits of these treatment options. PCP T risk calculator results were reviewed. Start finasteride as discussed and prescribed. Will obtain PSA in 4 months. Follow-up in 4 months with PSA; or sooner with any issues, concerns, and or questions. Orders: Orders AMB Urinalysis Automated Today Z13.9 - Encounter for screening, unspecified Urine Cytology Today R31.29 - Other microscopic hematuria PSA,Total (Free>4and<10) 4 Months N40.0 - Benign prostatic hyperplasia without lower urinary tract symptoms, R97.20 - Elevated prostate specific antigen [PSA] Medications: New finasteride 5 mg PO DAILY 90 tabs 1RF 90 days N32.0 - Bladder-neck obstruction Patient Instructions: The patient had an opportunity to ask questions regarding the treatment plan. All questions were answered. Physical exam, labs, and imaging were discussed and reviewed in detail. As well as risks, benefits, and discussion of treatment choices. No major barriers to understanding were identified. The patient expressed understanding and agreement with the above treatment plan. The patient was made aware they should contact our office by phone for worsening of their current condition, the appearance of new symptoms, or with any questions or concerns. Compliance is encouraged with any medications and follow up testing that is ordered. It is a privilege to be allowed the opportunity to participate in? your urological care.? Again, if you have any questions or concerns If you have any questions or concerns please do not hesitate to contact me. The office is [phone]. This note is constructed using voice recognition software. While every effort has been made to ensure accuracy hybrid derivatives trader errors may have been included. Yours sincerely, MELANY Lundberg-MARIANA Coding Level of Care Code Est Pt Level 4 (65943) Complex EM visit Add On G2211 Diagnoses Elevated PSA measurement R97.20 Renal cyst N28.1 Enlarged prostate N40.0
--- OUTSIDE RECORDS SUMMARY | 2025-05-05 18:07 | XMS_ITS | Clinical Summary ---
Author Organization [facility] Address [address] [place] [address] Phone Care Team Providers Care Utilities Service Investigator Name Role Phone System, Provider Not In [...] file Insurance MEDICARE PART A & B [employer] MEDICARE SUPPLEMENT MEDICARE PART A & B [employer] MEDICARE SUPPLEMENT MEDICARE PART A & B [employer] MEDICARE SUPPLEMENT MEDICARE PART A & B [employer] MEDICARE SUPPLEMENT MEDICARE PART A & B [employer] MEDICARE SUPPLEMENT MEDICARE PART A & B Member Subscriber Plan / Payer (Ef fective 2018-Present) Name:Jean Marie Simeon Member ID:[id number] Relation to Subscriber:Self Name:Jean Marie Simeon Subscriber ID:[id number] Payer ID:[id number] Group ID:Not on file Type:Medicare Address: [employer] [address] [place] [phone] [employer] MEDICARE SUPPLEMENT MEDICARE PART A & B [facility] EXTENSION MEDICARE SUPPLEMENT MEDICARE PART A & B [facility] EXTENSION MEDICARE SUPPLEMENT MEDICARE PART A & B [facility] EXTENSION MEDICARE SUPPLEMENT Care Teams Utilities Service Investigator Relationship Specialty Start Date End Date System, Provider [place] In, [place] [address] PCP - General 03/01/20 Additional Source Comments The information contained in this document represents components of the legal health record. It is not the complete legal health record.[facility]
--- OUTSIDE RECORDS SUMMARY | 2025-05-05 18:07 | XMS_ITS | Encounter Summary ---
Author Organization [facility] Address [address] [place] [phone] Phone Care Team Providers Care Shirt Line Operator Name Role Phone Unknown, Unknown MD Primary Care Provider Pastora Costa, Provider Not In PhD Primary Care Provide r Unavailable Encounter Details Date Type Department Care Team (Late st Contact Info) Description 02/26/2020 Ancillary Orders Virtual Department [address] [place] [address] Patt Medina, LOCOMOTIVE SWITCH OPERATOR [address] [place] [phone] [email or web address] Lumbar spondylosis Social History Tobacco Use Types [...] moderate to severe at L5-S1. POS - [id number] Narrative 03/01/2020 11:59 AM EDT HISTORY: Lower [...] moderate to severe at L5-S1. POS - [id number] Patt Medina NP IMG XR SPINE Final Result documented in this encounter Visit Diagnoses Diagnosis Lumbar spondylosis Lumbosacral spondylosis without myelopathy Lumbar spondylosis Lumbosacral spondylosis without myelopathy documented in this encounter Care Teams Shirt Line Operator Relationship Specialty Start Date End Date Unknown, Ismael, MD PCP - General 02/26/20 02/29/20 System, Provider [place] In, [place] [address] PCP - General 03/01/20 documented as of this encounter Additional Source Comments The information contained in this document represents components of the legal health record. It is not the complete legal health record.[facility]
== END 2025-05-05 15:29 | disposition home or self-care (01) ==
LOC: HO.HUSH 14:41
PROVIDERS: PCP Nurse Practitioner Family; Visit Provider Nurse Practitioner Family
DX: R97.20 Elevated prostate specific antigen [PSA] (principal); N28.1 Cyst of kidney, acquired; N40.0 Benign prostatic hyperplasia without lower urinary tract symptoms; Z13.9 Encounter for screening, unspecified
CPT/HCPCS: 99214; G2211

== ENCOUNTER 2025-05-05 14:40 | Outpatient (REF) | payer MEDICARE, OTHER, SELFPAY | END 2025-05-05 14:41 | disposition home or self-care (01) | LOC: HO.LAB 14:40 | PROVIDERS: PCP Nurse Practitioner Family; Visit Provider Nurse Practitioner Family | DX: R97.20 Elevated prostate specific antigen [PSA] (principal); N28.1 Cyst of kidney, acquired; N40.0 Benign prostatic hyperplasia without lower urinary tract symptoms; R31.29 Other microscopic hematuria | CPT/HCPCS: 81003; 88112; 99212 ==